=== PATIENT | male | born 1945 | race African-American/Black ===

== ENCOUNTER 2017-03-16 01:51 | Emergency (ER) | payer MEDICARE ==
[2017-03-16] MEDS ORDERED: LIDOCAINE 1% INJ (10 MG/ML) 10 ML MDV INJ ONE (02:05)
[2017-03-16] MEDS ORDERED: DIPH/PERTUSS(ACELL)/TETANUS VAC/PF 0.5 ML SYR (>=10YO) IM ONE (02:05)
[2017-03-16 02:13] VITALS: BP 106/89
[2017-03-16] MEDS ORDERED: LIDOCAINE 1% INJ-PF (10 MG/ML) 30 ML SDV ONE (02:17)
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
--- NOTE | 2017-03-16 04:00 | RADIOLOGY REPORT (SQ) ---
EXAM DESCRIPTION: CT HEAD WITHOUT COMPLETED DATE/TIME: 03/16/2017 3:25 am REASON FOR STUDY: head trauma COMPARISON: 07/14/2015. TECHNIQUE: Axial images acquired through the brain without intravenous contrast. Images reviewed wi th bone, brain and subdural windows. Images stored on PACS. All CT scanners at this facility use dose modulation, iterative reconstruction, and/or weight based d osing when appropriate to reduce radiation dose to as low as reasonably achievable (ALARA). [facility]: Dose Right [facility]: CareDose [facility]: Dose Right [facility]: Teradose 4D [facility]: [employer] RADIATION DOSE: Up-to-date CT equipment and radiation dose reduction techniques were employed. CTDIv ol: 49.0 mGy. DLP: 881 mGy-cm. mGy. LIMITATIONS: None. FINDINGS: VENTRICLES: Normal size and contour. CEREBRUM: No masses. No hemorrhage. No midline shift. No evidence for acute infarction. Normal gra y/white matter differentiation. Minimal white matter microangiopathy pattern. CEREBELLUM: No masses. No hemorrhage. No alteration of density. No evidence for acute infarction. EXTRAAXIAL SPACES: No fluid collections. No masses. Atherosclerosis. ORBITS AND GLOBE: No intra- or extraconal masses. Normal contour of globe without masses. CALVARIUM: No fracture. PARANASAL SINUSES: 1.5 cm left maxillary retention cyst -mucocele. SOFT TISSUES: No mass or hematoma. OTHER: No other significant finding. IMPRESSION: No acute findings. EVIDENCE OF ACUTE STROKE: NO. COMMENT: Quality ID # [id number]: Final reports with documentation of one or more dose reduction techniques (e.g., Automated exposure control, adjustment of the mA and/or kV according to patient size, use of iterative reconstruction technique) TECHNICAL DOCUMENTATION: JOB ID: [id number] [employer]- All Rights Reserved
== END 2017-03-16 04:28 | disposition home or self-care (01) ==
LOC: ER 01:51
PROC: 0HQ1XZZ Repair Face Skin, External Approach (ICD-10-PCS; principal; 2017-03-16)
DX: S01.81XA Laceration without foreign body of other part of head, initial encounter (principal); S09.90XA Unspecified injury of head, initial encounter; F17.200 Nicotine dependence, unspecified, uncomplicated; W22.8XXA Striking against or struck by other objects, initial encounter
CPT/HCPCS: 12013; 99283; 70450; 90715; J3490

== ENCOUNTER 2017-08-28 17:53 | Emergency (ER) | payer OTHER, MEDICARE ==
[2017-08-28 18:21] LABS: ABSOLUTE EOSINOPHILS # (AUTO) 0.2 10^3/uL (0.0-0.6); ABSOLUTE MONOCYTES (AUTO) 0.6 10^3/uL (0.1-1.4); ABSOLUTE NEUT (AUTO) 3.6 10^3/uL (1.7-8.2); BASOPHILS % (AUTO) 0.6 % (0-2); EOSINOPHILS % (AUTO) 3.3 % (0-6); HEMATOCRIT 42.2 % (37.9-51.0); HEMOGLOBIN 14.5 g/dL (13.5-17.0); LYMPHOCYTES % (AUTO) 30.5 % (13-45); MEAN CORPUSCULAR HEMOGLOBIN 35.2 pg (27.0-33.4); MEAN CORPUSCULAR HGB CONC 34.4 g/dL (32.0-36.0); MEAN CORPUSCULAR VOLUME 103 fl (80-97); MONOCYTES % (AUTO) 9.3 % (3-13); PLATELET COUNT 228 10^3/uL (150-450); RED BLOOD COUNT 4.12 10^6/uL (4.35-5.55); RED CELL DISTRIBUTION WIDTH 13.7 % (11.5-14.0); SEGMENTED NEUTROPHILS % (AUTO) 56.3 % (42-78); TOTAL CELLS COUNTED % (AUTO) 100 %; WHITE BLOOD COUNT 6.4 10^3/uL (4.0-10.5)
[2017-08-28 18:32] LABS: INTERNATIONAL RATION (INR) 0.96; PROTHROMBIN TIME 13.5 SEC (11.4-15.4)
[2017-08-28 18:44] LABS: BLOOD UREA NITROGEN 16 mg/dL (7-20); CALCIUM 9.4 mg/dL (8.4-10.2); CHLORIDE 108 mmol/L (98-107); GLUCOSE 166 mg/dL (75-110); POTASSIUM 4.3 mmol/L (3.6-5.0)
[2017-08-28 18:45] LABS: ALANINE AMINOTRANSFERASE 17 U/L (21-72); ALBUMIN 4.1 g/dL (3.5-5.0); ALKALINE PHOSPHATASE 76 U/L (38-126); ANION GAP 8 (5-19); ASPARTATE AMINO TRANSFERASE 22 U/L (17-59); BILIRUBIN,DIRECT 0.4 mg/dL (0.0-0.4); BILIRUBIN,TOTAL 1.3 mg/dL (0.2-1.3); CARBON DIOXIDE 23 mmol/L (22-30); SODIUM 139.2 mmol/L (137-145); TOTAL PROTEIN 7.4 g/dL (6.3-8.2)
--- NOTE | 2017-08-28 18:54 | RADIOLOGY REPORT (SQ) ---
EXAM DESCRIPTION: CT HEAD WITHOUT COMPLETED DATE/TIME: 08/28/2017 6:27 pm REASON FOR STUDY: altered mental status COMPARISON: 03/16/2017 TECHNIQUE: Axial images acquired through the brain without intravenous contrast. Images reviewed wi th bone, brain and subdural windows. Images stored on PACS. All CT scanners at this facility use dose modulation, iterative reconstruction, and/or weight based d osing when appropriate to reduce radiation dose to as low as reasonably achievable (ALARA). [facility]: Dose Right [facility]: CareDose [facility]: Dose Right [facility]: Teradose 4D [facility]: [employer] RADIATION DOSE: CT Rad equipment meets quality standard of care and radiation dose reduction techniq ues were employed. CTDIvol: 64.6 mGy. DLP: 1163 mGy-cm. mGy. LIMITATIONS: None. FINDINGS: VENTRICLES: Normal size and contour. CEREBRUM: There is decreased attenuation in the left posterior parietal area with loss of fan/ white differentiation. CEREBELLUM: No masses. No hemorrhage. No alteration of density. No evidence for acute infarction. EXTRAAXIAL SPACES: No fluid collections. No masses. ORBITS AND GLOBE: No intra- or extraconal masses. Normal contour of globe without masses. CALVARIUM: No fracture. PARANASAL SINUSES: Fluid is seen in each maxillary sinus. SOFT TISSUES: No mass or hematoma. OTHER: No other significant finding. IMPRESSION: 1. There is an area of decreased attenuation with loss of fan/ white differentiation i n the left posterior parietal region suggestive of at least a subacute infarction. 2. Maxillary sinus disease. EVIDENCE OF ACUTE STROKE: YES. LEFT MCA COMMENT: Findings were discussed with the ordering physician at 1846 hours on this date. Quality ID # [id number]: Final reports with documentation of one or more dose reduction techniques (e.g., Au tomated exposure control, adjustment of the mA and/or kV according to patient size, use of iterative reconstruction technique) TECHNICAL DOCUMENTATION: JOB ID: [id number] [employer]- All Rights Reserved Reading location - IP/workstation name: [email or web address]
--- NOTE | 2017-08-28 19:15 | RADIOLOGY REPORT (SQ) ---
EXAM DESCRIPTION: CT CERVICAL SPINE WITHOUT COMPLETED DATE/TIME: 08/28/2017 6:27 pm REASON FOR STUDY: FALL COMPARISON: 07/14/2015 TECHNIQUE: Axial images acquired through the cervical spine without intravenous contrast. Images re viewed with lung, soft tissue and bone windows. Reconstructed coronal and sagittal MPR images review ed. Images stored on PACS. All CT scanners at this facility use dose modulation, iterative reconstruction, and/or weight based d osing when appropriate to reduce radiation dose to as low as reasonably achievable (ALARA). [facility]: Dose Right [facility]: CareDose [facility]: Dose Right [facility]: Teradose 4D [facility]: [employer] RADIATION DOSE: CT Rad equipment meets quality standard of care and radiation dose reduction techniq ues were employed. CTDIvol: 16.1 mGy. DLP: 336 mGy-cm. mGy. LIMITATIONS: None. FINDINGS: ALIGNMENT: There is slight reversal of the normal cervical lordosis in the mid cervical ar ea. MINERALIZATION: Normal. VERTEBRAL BODIES: No fractures or dislocation. DISCS: Disc spaces are narrowed from C4 to C7 with anterior osteophytes. Uncovertebral osteophytes a re present at C4-5 and particularly C5-6. FACETS, LATERAL MASSES, POSTERIOR ELEMENTS: Hypertrophic facet changes seen in the mid cervical spine right more than left. HARDWARE: None in the spine. VISUALIZED RIBS: No fractures. LUNG APICES AND SOFT TISSUES: No significant or acute findings. OTHER: No other significant finding. IMPRESSION: Straightening of cervical spine which is chronic. Degenerative disc disease, spondylosi s, and facet arthropathy. No acute abnormality. TECHNICAL DOCUMENTATION: JOB ID: [id number] Quality ID # [id number]: Final reports with documentation of one or more dose reduction techniques (e.g., Au tomated exposure control, adjustment of the mA and/or kV according to patient size, use of iterative reconstruction technique) 2010 [employer]- All Rights Reserved Reading location - IP/workstation name: [email or web address]
--- NOTE | 2017-08-28 19:37 | ER Document Report ---
ED General - General Chief Complaint: Altered Mental Status Stated Complaint: ALTERED MENTAL STATUS Time Seen by Provider: 08/28/17 18:20 Mode of Arrival: Stretcher Information source: Patient TRAVEL OUTSIDE OF THE [place] IN LAST 30 DAYS: No - HPI Patient complains to provider of: mental status change Onset: This morning - exact time unknown Associated symptoms: None Similar symptoms previously: No Recently seen / treated by doctor: No Notes: Patient is incarcerated he was brought in here because this morning at approximately 11 AM he hit his head on a pull and then started acting strange. Please been who brought him in could not offer any more information. - Related Data Allergies/Adverse Reactions: No Known Allergies Allergy (Verified 11/13/15 08:05) Past Medical History - General Information source: Outside Facility Records - Social History Smoking Status: Unknown if Ever Smoked Drug Abuse: None Lives with: Other - Incarcerated Family History: Reviewed & Not Pertinent Patient has suicidal ideation: No Patient has homicidal ideation: No - Past Medical History Cardiac Medical History: Reports: Hx Hypertension Renal/ Medical History: Denies: Hx Peritoneal Dialysis - Immunizations Immunizations up to date: Yes Hx Diphtheria, Pertussis, Tetanus Vaccination: No Review of Systems - Review of Systems -: Yes ROS unobtainable due to patient's medical condition Physical Exam - Vital signs Vitals: Temp Pulse BP Pulse Ox 97.7 F 101 H 143/99 H 96 08/28/17 18:00 08/28/17 18:00 08/28/17 18:00 08/28/17 18:00 - Notes Notes: PHYSICAL EXAMINATION: GENERAL: Well-appearing, well-nourished and in no acute distress. HEAD: Atraumatic, normocephalic. No scalp hematoma, battlesigns or racoon eyes. EYES: Pupils equal round and reactive to light, extraocular movements intact, sclera anicteric, conjunctiva are normal. ENT: Nares patent. Moist mucous membranes. NECK: Normal range of motion, supple without lymphadenopathy LUNGS: Breath sounds clear to auscultation bilaterally and equal. No wheezes rales or rhonchi. HEART: Regular rate and rhythm without murmurs ABDOMEN: Soft, nontender, nondistended abdomen. No guarding, no rebound. No masses appreciated. Musculoskeletal: Normal range of motion, no pitting or edema. No cyanosis. NEUROLOGICAL: Cranial nerves grossly intact. Pt. has difficulty following commands. He moves all extremities without difficulty. Patient has apraxia as well as expressive aphasia. NIH stroke scale was 7. PSYCH: Called to assess. Patient does seem mildly frustrated. SKIN: Warm, Dry, normal turgor, no rashes or lesions noted. Course - Re-evaluation Re-evalutation: 08/28/17 19:36 call placed to [facility]-I did talk to Luly at the transfer center. She states she will have the hospitalist call me back. 08/28/17 20:00 I did speak with neurologist Dr. Molina at [facility]. Patient will be accepted and will be placed under Dr. Espinoza the hospitalist. M [employer] form has been filled out. Nurse and cognos are aware. IV fluids and rectal aspirin have been ordered. - Vital Signs Vital signs: Temp Pulse Resp BP Pulse Ox 98.2 F 92 23 H 152/102 H 97 08/28/17 20:01 08/28/17 21:12 08/28/17 21:44 08/28/17 21:30 08/28/17 21:43 - Laboratory Result Diagrams: 08/28/17 18:05 08/28/17 18:05 Laboratory results interpreted by me: 08/28/17 08/28/17 18:05 18:05 RBC 4.12 L MCV 103 H MCH 35.2 H Chloride 108 H Glucose 166 H ALT 17 L - Diagnostic Test Radiology reviewed: Image reviewed, Reports reviewed Critical Care Note - Critical Care Note Total time excluding time spent on procedures (mins): 30 Comments: minutes of critical care time spent in direct contact evaluating and reevaluating the patient, treating symptoms, reviewing labs and studies and speaking with family and consultants excluding any procedures Discharge - Discharge Clinical Impression: Parietal lobe infarction, 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
[2017-08-28] MEDS ORDERED: NORMAL SALINE 1000 ML 1,000 ML IV PRN (19:59)
[2017-08-28] MEDS ORDERED: ASPIRIN 300 MG SUPP, RECTAL PR ONE (19:59)
[2017-08-28 21:49] VITALS: BP 152/102
== END 2017-08-28 21:55 ==
LOC: ER 17:53
DX: I62.9 Nontraumatic intracranial hemorrhage, unspecified (principal); R47.01 Aphasia; R48.2 Apraxia; R41.82 Altered mental status, unspecified; I10 Essential (primary) hypertension
CPT/HCPCS: 99291; 96360; 36415; 85025; 85610; 80053; 70450; 72125; J3490; J7030

== ENCOUNTER 2017-10-19 17:00 | Emergency (ER) | payer MEDICARE, OTHER ==
--- NOTE | 2017-10-19 19:56 | RADIOLOGY REPORT (SQ) ---
EXAM DESCRIPTION: CT HEAD WITHOUT COMPLETED DATE/TIME: 10/19/2017 7:06 pm REASON FOR STUDY: headache, on bloodthinners COMPARISON: 08/28/2017 TECHNIQUE: Axial images acquired through the brain without intravenous contrast. Images reviewed wi th bone, brain and subdural windows. Images stored on PACS. All CT scanners at this facility use dose modulation, iterative reconstruction, and/or weight based d osing when appropriate to reduce radiation dose to as low as reasonably achievable (ALARA). [facility]: Dose Right [facility]: CareDose [facility]: Dose Right [facility]: Teradose 4D [facility]: [employer] RADIATION DOSE: CT Rad equipment meets quality standard of care and radiation dose reduction techniq ues were employed. CTDIvol: 53.2 mGy. DLP: 1017 mGy-cm. mGy. LIMITATIONS: None. FINDINGS: VENTRICLES: Age-appropriate. CEREBRUM: No masses. No hemorrhage. No midline shift. Evolving area of low density in the left tem poral-parietal white matter due to chronic ischemic change. No evidence for acute infarction. CEREBELLUM: No masses. No hemorrhage. No alteration of density. No evidence for acute infarction. EXTRAAXIAL SPACES: Mild age-related involutional change. No fluid collections. No masses. ORBITS AND GLOBE: No intra- or extraconal masses. Normal contour of globe without masses. CALVARIUM: No fracture. PARANASAL SINUSES: No fluid or mucosal thickening. SOFT TISSUES: No mass or hematoma. OTHER: No other significant finding. IMPRESSION: No intracranial hemorrhage.Evolving area of low density in the left temporal-parietal wh ite matter due to chronic ischemic change. EVIDENCE OF ACUTE STROKE: No TECHNICAL DOCUMENTATION: JOB ID: [id number] Quality ID # [id number]: Final reports with documentation of one or more dose reduction techniques (e.g., Au tomated exposure control, adjustment of the mA and/or kV according to patient size, use of iterative reconstruction technique) 2010 [employer]- All Rights Reserved Reading location - IP/workstation name: [email or web address]
[2017-10-19 20:12] LABS: ABSOLUTE EOSINOPHILS # (AUTO) 0.3 10^3/uL (0.0-0.6); ABSOLUTE LYMPHOCYTES (AUTO) 2.2 10^3/uL (0.5-4.7); ABSOLUTE MONOCYTES (AUTO) 0.6 10^3/uL (0.1-1.4); ABSOLUTE NEUT (AUTO) 2.4 10^3/uL (1.7-8.2); BASOPHILS % (AUTO) 0.7 % (0-2); EOSINOPHILS % (AUTO) 6.1 % (0-6); HEMATOCRIT 37.3 % (37.9-51.0); HEMOGLOBIN 12.5 g/dL (13.5-17.0); LYMPHOCYTES % (AUTO) 39.9 % (13-45); MEAN CORPUSCULAR HEMOGLOBIN 35.4 pg (27.0-33.4); MEAN CORPUSCULAR HGB CONC 33.6 g/dL (32.0-36.0); MEAN CORPUSCULAR VOLUME 105 fl (80-97); MONOCYTES % (AUTO) 10.5 % (3-13); PLATELET COUNT 222 10^3/uL (150-450); RED BLOOD COUNT 3.54 10^6/uL (4.35-5.55); SEGMENTED NEUTROPHILS % (AUTO) 42.8 % (42-78); TOTAL CELLS COUNTED % (AUTO) 100 %; WHITE BLOOD COUNT 5.5 10^3/uL (4.0-10.5)
[2017-10-19 20:23] LABS: ALANINE AMINOTRANSFERASE 38 U/L (21-72); ALKALINE PHOSPHATASE 91 U/L (38-126); ANION GAP 9 (5-19); ASPARTATE AMINO TRANSFERASE 18 U/L (17-59); BILIRUBIN,DIRECT 0.3 mg/dL (0.0-0.4); BILIRUBIN,TOTAL 0.8 mg/dL (0.2-1.3); BLOOD UREA NITROGEN 12 mg/dL (7-20); CALCIUM 9.6 mg/dL (8.4-10.2); CARBON DIOXIDE 29 mmol/L (22-30); CHLORIDE 107 mmol/L (98-107); CREATINE KINASE 48 U/L (55-170); GLUCOSE 99 mg/dL (75-110); POTASSIUM 5.1 mmol/L (3.6-5.0); SODIUM 145.3 mmol/L (137-145); TOTAL PROTEIN 6.8 g/dL (6.3-8.2)
[2017-10-19 20:41] LABS: CREATINE KINASE MB 0.37 ng/mL (<4.55)
[2017-10-19 20:42] LABS: TROPONIN I < 0.012 ng/mL
--- NOTE | 2017-10-19 21:08 | ER Document Report ---
ED Blood Pressure Problem - General Mode of Arrival: Ambulatory Information source: Patient TRAVEL OUTSIDE OF THE [place] IN LAST 30 DAYS: No - HPI Patient complains to provider of: High blood pressure Onset: Yesterday Similar symptoms previously: Yes Recently seen / treated by doctor: Yes <CHANDANA ORTEGA - Last Filed: 10/19/17 21:21> <NOREEN FELIX - Last Filed: 10/20/17 03:16> - General Chief Complaint: High Blood Pressure Stated Complaint: BLOOD PRESSURE PROBLEMS Time Seen by Provider: 10/19/17 18:24 Notes: Patient is a 71 year old male that presents to the emergency department today in custody of the [facility] with complaints of elevated blood pressures and a headache last night. Patient was recently moved to [facility] in [place] secondary to a CVA last week. [facility] deputy at bedside states the patient had similar symptoms when he had the CVA. Patient states he no longer has a headache and feels normal currently. Patient denies a headache currently, any pain, shortness of breath, nausea, vomiting, diarrhea , abdominal pain, cough, congestion, or fevers. (CHANDANA ORTEGA) - Related Data Allergies/Adverse Reactions: No Known Allergies Allergy (Verified 11/13/15 08:05) Past Medical History - General Information source: Patient - Social History Smoking Status: Unknown if Ever Smoked Cigarette use (# per day): No Frequency of alcohol use: None Drug Abuse: None Lives with: Family Family History: Reviewed & Not Pertinent Patient has suicidal ideation: No Patient has homicidal ideation: No - Past Medical History Cardiac Medical History: Reports: Hx Hypertension Surgical Hx: Negative - Immunizations Immunizations up to date: Yes Hx Diphtheria, Pertussis, Tetanus Vaccination: No <CHANDANA ORTEGA - Last Filed: 10/19/17 21:21> Review of Systems - Review of Systems Constitutional: denies: Fever EENT: No symptoms reported Cardiovascular: No symptoms reported Respiratory: denies: Short of breath Gastrointestinal: denies: Abdominal pain, Diarrhea, Vomiting Genitourinary: denies: Dysuria Male Genitourinary: No symptoms reported Musculoskeletal: denies: Leg swelling Skin: No symptoms reported Hematologic/Lymphatic: No symptoms reported Neurological/Psychological: See HPI, Headaches - not currently -: Yes All other systems reviewed and negative <CHANDANA ORTEGA - Last Filed: 10/19/17 21:21> Physical Exam - Vital signs Interpretation: Normal - General General appearance: Appears well, Alert - HEENT Head: Normocephalic, Atraumatic Eyes: Normal Pupils: PERRL - Respiratory Respiratory status: No respiratory distress Chest status: Nontender Breath sounds: Normal Chest palpation: Normal - Cardiovascular Rhythm: Regular Heart sounds: Normal auscultation Murmur: No - Abdominal Inspection: Normal Distension: No distension Bowel sounds: Normal Tenderness: Nontender Organomegaly: No organomegaly - Back Back: Normal, Nontender - Extremities General upper extremity: Normal inspection, Nontender, Normal color, Normal ROM , Normal temperature General lower extremity: Normal inspection, Nontender, Normal color, Normal ROM , Normal temperature, Normal weight bearing. No: Pedro's sign - Neurological Neuro grossly intact: Yes Cognition: Normal Orientation: AAOx4 Heydi Coma Scale Eye Opening: Spontaneous Heydi Coma Scale Verbal: Oriented Philo Coma Scale Motor: Obeys Commands Philo Coma Scale Total: 15 Speech: Normal Motor strength normal: LUE, RUE, LLE, RLE Sensory: Normal - Psychological Associated symptoms: Normal affect, Normal mood - Skin Skin Temperature: Warm Skin Moisture: Dry Skin Color: Normal <NOREEN FELIX - Last Filed: 10/20/17 03:16> - Vital signs Vitals: Temp Pulse Resp BP Pulse Ox 97.6 F 76 16 152/92 H 100 10/19/17 17:13 10/19/17 17:13 10/19/17 17:13 10/19/17 17:13 10/19/17 17:13 Course - Laboratory Result Diagrams: 10/19/17 19:54 10/19/17 19:54 <CHANDANA ORTEGA - Last Filed: 10/19/17 21:21> - Laboratory Result Diagrams: 10/19/17 19:54 10/19/17 19:54 - Diagnostic Test Radiology reviewed: Reports reviewed <NOREEN FELIX - Last Filed: 10/20/17 03:16> - Re-evaluation Re-evalutation: 10/19 Patient had a headache and high blood pressure last night. No headache today. Asymptomatic today. Patient had a recent stroke but no symptoms currently. He is completely neurologically intact. CT of his head today is not showing any new changes. Blood work within normal limits including troponin negative 2. Patient is instructed to follow-up with his doctor and return immediately if he has any further concerns. (NOREEN FELIX) - Vital Signs Vital signs: Temp Pulse Resp BP Pulse Ox 98.0 F 70 12 158/102 H 97 10/19/17 23:31 10/19/17 18:43 10/19/17 23:31 10/19/17 23:31 10/19/17 23:31 - Laboratory Laboratory results interpreted by me: 10/19/17 10/19/17 19:54 19:54 RBC 3.54 L Hgb 12.5 L Hct 37.3 L MCV 105 H MCH 35.4 H Eosinophils % 6.1 H Sodium 145.3 H Potassium 5.1 H Creatine Kinase 48 L Discharge <CHANDANA ORTEGA - Last Filed: 10/19/17 21:21> <NOREEN FELIX - Last Filed: 10/20/17 03:16> - Discharge Clinical Impression: Headache Qualifiers: Headache type: unspecified Headache chronicity pattern: unspecified pattern Intractability: not intractable Qualified Code(s): R51 - Headache HTN (hypertension) Qualifiers: Hypertension type: unspecified Qualified Code(s): I10 - Essential (primary) hypertension Condition: Stable Disposition: HOME, SELF-CARE Instructions: High Blood Pressure ([facility]) Additional Instructions: Please follow-up with your doctor on Saturday. Scribe Attestation: 10/20/17 03:15 I personally performed the services described in the documentation, reviewed and edited the documentation which was dictated to the scribe in my presence, and it accurately records my words and actions. (NOREEN FELIX) Scribe Documentation - Scribe Written by Alba:: Alba Barron, [id number] acting as scribe for :: Eron <CHANDANA ORTEGA - Last Filed: 10/19/17 21:21>
[2017-10-19 23:48] VITALS: BP 158/102
--- NOTE | 2017-10-20 08:17 | EKG REPORT ---
SEVERITY:- ABNORMAL ECG - SINUS RHYTHM LEFT ANTERIOR FASCICULAR BLOCK PROBABLE LEFT VENTRICULAR HYPERTROPHY ABNORMAL T, CONSIDER ISCHEMIA, ANT-LAT LEAD, NEW, COMPARED WITH 11/13/15 EKG. : Confirmed by: Charles Figueroa MD 20-Oct-2017 08:17:07
== END 2017-10-19 23:56 | disposition home or self-care (01) ==
LOC: ER 17:00
DX: I10 Essential (primary) hypertension (principal); R51 Headache; Z86.73 Personal history of transient ischemic attack (TIA), and cerebral infarction without residual deficits
CPT/HCPCS: 36415; 70450; 80053; 82550; 82553; 84484; 85025; 93005; 93010; 99285

== ENCOUNTER 2017-11-20 10:46 | Emergency (ER) | payer MEDICARE, OTHER ==
--- NOTE | 2017-11-20 11:23 | ER Document Report ---
ED GI/ - General Chief Complaint: Abdominal Pain Stated Complaint: LOWER ABDOMINAL PAIN Time Seen by Provider: 11/20/17 11:10 Information source: Patient, Parent Notes: Patient noted onset of painful swelling in the left groin area just a couple of days ago. Patient has never had this before. There is not been any draining. He has had no urinary tract symptoms. Patient is a resident of a local skilled nursing for the past 8 months. Denies any trauma to the area. No urethral discharge or drip. Has not had any fevers. No complaints involving the scrotum or testicles. TRAVEL OUTSIDE OF THE [place] IN LAST 30 DAYS: No - Related Data Allergies/Adverse Reactions: No Known Allergies Allergy (Verified 11/13/15 08:05) Past Medical History - Social History Smoking Status: Former Smoker Chew tobacco use (# tins/day): No Frequency of alcohol use: past history Drug Abuse: None Family History: Reviewed & Not Pertinent Patient has suicidal ideation: No Patient has homicidal ideation: No - Past Medical History Cardiac Medical History: Reports: Hx Hypertension Endocrine Medical History: Denies: Hx Diabetes Mellitus Type 1, Hx Diabetes Mellitus Type 2 Renal/ Medical History: Reports: Hx Kidney Stones Past Surgical History: Reports: None - Immunizations Immunizations up to date: Yes Hx Diphtheria, Pertussis, Tetanus Vaccination: No Review of Systems - Review of Systems Notes: REVIEW OF SYSTEMS: CONSTITUTIONAL : Denies fever. Only has pain in that one spot in the left inguinal region where there is the swollen lump. Vital signs are normal. Afebrile. EENT: Denies eye, ear, nose or mouth or throat pain or other symptoms. CARDIOVASCULAR: Denies chest pain. RESPIRATORY: Denies cough, chest congestion, or shortness of breath. GASTROINTESTINAL: Denies abdominal pain or nausea, vomiting, or diarrhea. GENITOURINARY: Denies difficulty or painful urinating, urinary frequency, blood in urine. Tender swollen area in the middle of the left inguinal region. Not pulsatile. No fluctuance felt. No gaseous distention felt. MUSCULOSKELETAL: Denies back or neck pain. Denies joint pain or swelling. SKIN: Denies rash or skin lesions. NEUROLOGICAL: Denies LOC or altered mental status. Denies headache. Denies sensory loss or motor deficits. ALL OTHER SYSTEMS REVIEWED AND NEGATIVE. Physical Exam - Vital signs Vitals: Temp Pulse Resp BP Pulse Ox 98.2 F 82 18 140/92 H 98 11/20/17 11:05 11/20/17 11:05 11/20/17 11:05 11/20/17 11:05 11/20/17 11:05 Interpretation: Normal - Notes Notes: PHYSICAL EXAMINATION: GENERAL: Well-appearing, in no acute distress. HEAD: Atraumatic, normocephalic. NECK: Normal range of motion, supple. LUNGS: Breath sounds clear and equal bilaterally. HEART: Regular rate and rhythm without murmurs. ABDOMEN: Soft, nontender. No guarding or rebound. No masses. BACK: No tenderness throughout entire back. EXTREMITIES: Normal range of motion without pain. NEUROLOGICAL: Normal speech, normal gait. Normal sensory, motor, and reflex exams. Awake, alert, and oriented x3. Cranial nerves normal. PSYCH: Normal mood, normal affect. SKIN: Warm, dry, no rashes. Approximately 2 cm x 1 cm lump in the left inguinal region. No fluctuance, no drainage, no gaseous feeling. Lump feels to be mostly firm and solid structure. No skin changes overlying the lump and no change in color. Course - Re-evaluation Re-evalutation: 11/20/17 13:04 Consult by surgeon artificial insemination technician, Dr. Vazquez, requested. Dr. Vazquez attempted aspiration and incision and drainage of the lump, but was not able to find any fluid. He did biopsy some tissue which was sent for pathologic evaluation. He requested that I put the patient on about 3 days of antibiotic and the packing that was placed can be removed in 2 days. - Vital Signs Vital signs: Temp Pulse Resp BP Pulse Ox 99.1 F 102 H 18 151/85 H 97 11/20/17 15:38 11/20/17 15:38 11/20/17 15:38 11/20/17 15:38 11/20/17 15:38 - Laboratory Result Diagrams: 11/20/17 11:43 11/20/17 11:43 Laboratory results interpreted by me: 11/20/17 11/20/17 11:43 11:43 RBC 3.80 L Hgb 13.3 L MCV 106 H MCH 35.1 H Chloride 109 H AST 16 L - Diagnostic Test Radiology reviewed: Image reviewed, Reports reviewed - Ultrasound read by radiology as showing a small area of either sebaceous cyst or abscess fluid collection. Discharge - Discharge Clinical Impression: Lymphadenopathy, inguinal, Abscess of left groin Condition: Stable Disposition: HOME, SELF-CARE Additional Instructions: ABSCESS: You may have an abscess (boil) and enlarged lymph node.. This a pus- forming infection, usually due to staph. Some boils may be left to drain on their own, but most require lancing. From the time the tender lump first appears, it may be three or four days before the abscess is ready to cornelius. Local heat and rest help at this stage of treatment. An antibiotic may prevent spread of the infection. Once the abscess is opened, packing may be placed into it. This is done so pus is not sealed inside by premature closure of the cavity. The packing will be removed at your follow-up visit or you may be advised to remove it yourself at home. Sometimes this packing must be replaced a few times during healing. The wound will heal with surprisingly little scar. Depending on the size and location of an abscess, healing can take one to four weeks. You may shower and wash the area around the incision site two or three times a day. Antibiotics may be prescribed, but are usually not necessary after an abscess has been drained. If you develop fever, chills, worsening pain, or increasing swelling in the area, call the doctor or return immediately. Lymphadenopathy You have enlargement of lymph glands, called lymphadenopathy. Lymph glands filter tissue fluids. They help to fight infection. Most of the time, enlarged lymph glands are not serious. Lymph glands may react to a viral or bacterial infection by becoming swollen and painful. When the infection goes away, the glands shrink. Sometimes a lymph gland will remain enlarged for a long time after an infection. Occasionally, a lymph gland may be overwhelmed by infection and form an abscess. If an enlarged lymph gland has signs that are suspicious for tumor, the doctor will recommend a biopsy. A suspicious gland usually is NOT painful, grows very slowly, and is rock-hard to touch. See the doctor or return if there is increasing swelling and redness, high fever, difficulty breathing, or any other change for the worse. POST INCISION AND DRAINAGE: You have had an incision made to allow drainage of an abscess. The incision must remain open so that pus and debris can drain from the wound. If the abscess cavity is large, packing is placed. This keeps the tissues from collapsing and trapping pus inside, while the body shrinks the cavity. The packing may need to be replaced every day or two. The physician will instruct you on the packing. Keep a bulky dressing over the area. Replace it if it becomes saturated with blood or pus. Do not disturb the packing (if present). You may shower and cleanse the area with gentle soap and warm water two or three times a day. Local warmth may be soothing, and may promote faster healing. Return if you develop high fever or chills, or if you note spreading redness, increasing swelling, or increasing tenderness. CEPHALEXIN: The antibiotic you've been prescribed is a member of the cephalosporin class. This type of antibiotic covers a wide variety of infections, including those of the skin, lungs, and urinary tract. It's useful for staph infections. This antibiotic is slightly similar to the penicillin family. In rare cases , a person who is allergic to penicillin will also be allergic to this medication. If you have had a severe allergic reaction to penicillin, and have not taken this antibiotic since that time, notify your doctor. Antibiotics which cover many germs ("broad spectrum" antibiotics) are more likely to cause diarrhea or "yeast" infections. Women prone to vaginal yeast problems may suffer an attack after taking this antibiotic. In infants, oral thrush (white spots "stuck" on the cheek) or yeast diaper rash may result. See your doctor if these problems occur. Call at once if you develop itching, hives , shortness of breath, or lightheadedness. The packing should be removed from the incision site in 2 days, Saturday afternoon would be best. FOLLOW-UP CARE: Most simple abscesses will not require a follow up visit. If you had packing placed in the abscess, remove it as instructed by the physician. If you have been referred to a physician for follow-up care, call the physicians office for an appointment as you were instructed or within the next two days. If you experience worsening or a significant change in your symptoms, return to the Emergency Department at any time for re-evaluation. Prescriptions: Cephalexin Monohydrate [Keflex 500 mg Capsule] 500 mg PO QID 3 Days capsule
[2017-11-20 12:01] LABS: ABSOLUTE BASOPHILS # (AUTO) 0.1 10^3/uL (0.0-0.2); ABSOLUTE EOSINOPHILS # (AUTO) 0.3 10^3/uL (0.0-0.6); ABSOLUTE MONOCYTES (AUTO) 0.8 10^3/uL (0.1-1.4); ABSOLUTE NEUT (AUTO) 4.7 10^3/uL (1.7-8.2); BASOPHILS % (AUTO) 0.7 % (0-2); EOSINOPHILS % (AUTO) 4.3 % (0-6); HEMATOCRIT 40.3 % (37.9-51.0); HEMOGLOBIN 13.3 g/dL (13.5-17.0); LYMPHOCYTES % (AUTO) 25.8 % (13-45); MEAN CORPUSCULAR HEMOGLOBIN 35.1 pg (27.0-33.4); MEAN CORPUSCULAR HGB CONC 33.1 g/dL (32.0-36.0); MEAN CORPUSCULAR VOLUME 106 fl (80-97); MONOCYTES % (AUTO) 9.8 % (3-13); PLATELET COUNT 202 10^3/uL (150-450); RED CELL DISTRIBUTION WIDTH 13.5 % (11.5-14.0); SEGMENTED NEUTROPHILS % (AUTO) 59.4 % (42-78); TOTAL CELLS COUNTED % (AUTO) 100 %; WHITE BLOOD COUNT 7.9 10^3/uL (4.0-10.5)
[2017-11-20 12:21] LABS: ALANINE AMINOTRANSFERASE 33 U/L (21-72); ALKALINE PHOSPHATASE 86 U/L (38-126); ANION GAP 9 (5-19); ASPARTATE AMINO TRANSFERASE 16 U/L (17-59); BILIRUBIN,DIRECT 0.2 mg/dL (0.0-0.4); BILIRUBIN,TOTAL 0.8 mg/dL (0.2-1.3); BLOOD UREA NITROGEN 16 mg/dL (7-20); CALCIUM 9.5 mg/dL (8.4-10.2); CARBON DIOXIDE 25 mmol/L (22-30); CHLORIDE 109 mmol/L (98-107); GLUCOSE 95 mg/dL (75-110); POTASSIUM 4.8 mmol/L (3.6-5.0); SODIUM 142.9 mmol/L (137-145); TOTAL PROTEIN 6.9 g/dL (6.3-8.2)
--- NOTE | 2017-11-20 12:32 | RADIOLOGY REPORT (SQ) ---
EXAM DESCRIPTION: U/S NON-OB PELVIS LTD W/O DOP COMPLETED DATE/TIME: 11/20/2017 12:06 pm REASON FOR STUDY: Painful swelling in left groin, no history hernia COMPARISON: None. TECHNIQUE: Dynamic and static grayscale images acquired of the left inguinal superficial soft tissue s and recorded on PACS. Additional selected color Doppler and spectral images recorded. LIMITATIONS: None. FINDINGS: Patient has a palpable tender area in the left inguinal soft tissues. Ultrasound of the a kim indicated by the patient demonstrates a hypoechoic 1.5 x 1 cm complex fluid collection with sligh tly irregular margins. No internal color flow. This could represent a suppurative lymph node or cou ld represent an infected or inflamed sebaceous cyst in the subcutaneous tissues. IMPRESSION: 1.5 x 1 cm complex fluid collection just deep to the skin surface left inguinal region. This most likely represents a sebaceous cyst or small subcutaneous abscess. TECHNICAL DOCUMENTATION: JOB ID: [id number] [employer]- All Rights Reserved Rev Reading location - IP/workstation name: [email or web address]-RR
[2017-11-20] MEDS ORDERED: LIDOCAINE 1% INJ-PF (10 MG/ML) 30 ML SDV ONE (13:11)
[2017-11-20 15:39] VITALS: BP 151/85
--- NOTE | 2017-11-20 15:54 | OPERATIVE REPORT E ---
Operative Report NAME: SUSY CONNOLLY : 1945 AGE: 71Y DATE OF SURGERY: 11/20/2017 ROOM: PREOPERATIVE DIAGNOSIS: Left groin abscess. POSTOPERATIVE DIAGNOSIS: Left groin lymph node. OPERATION: SURGEON: SEDRICK CARLOS M.D. ANESTHESIA: Local. INDICATIONS FOR PROCEDURE: This is a 71-year-old male who was in the care home and noted pains along the left groin and some starting mass noted about 2 days ago. He was brought to the ED and ED physician sent him for an ultrasound which showed a possible sebaceous cyst or an abscess. DESCRIPTION OF PROCEDURE: Patient was placed in supine position and the left groin prepped and draped in the usual sterile fashion. Appropriate consent was obtained. Next, local anesthesia was infiltrated over the palpable lump which roughly measured about 2 x 2 cm in diameter. A cruciate incision was made and no definite evidence of abscess noted, though cultures of this bloody cavity site and with blunt squeezing around the area noted a lymph node. This lymph node was partially removed with the use of a hemostat and just primarily pulling on it and sent several fragments for biopsy. No other evidence of abscess or sebaceous cyst noted. The area was subsequently packed with a bottle of quarter-inch Iodoform gauze, primarily to control the bleeding. This controlled the bleeding nicely. A sterile 4 x 4 was placed over the operative site. Needle, instrument, and sponge counts were all correct. Estimated blood loss was about 25 mL. Patient was then discussed with the ER physician, Dr. Franco, and told him to keep the packing for at least 2 days and the patient can be seen by a nurse in the care home and continue with antibiotics for about 3 to 5 days, likely with Keflex. DICTATING PHYSICIAN: SEDRICK CARLOS M.D. [id number] PHY#: [id number] ID: [id number] JOB#: [id number] ACCT: [id number] cc:SEDRICK CARLOS M.D. >
== END 2017-11-20 15:48 | disposition home or self-care (01) ==
LOC: ER 10:46
PROC: 0H97XZZ Drainage of Abdomen Skin, External Approach (ICD-10-PCS; principal; 2017-11-20)
DX: L02.214 Cutaneous abscess of groin (principal); R10.30 Lower abdominal pain, unspecified; R59.0 Localized enlarged lymph nodes; I10 Essential (primary) hypertension; Z87.891 Personal history of nicotine dependence; Z87.442 Personal history of urinary calculi
CPT/HCPCS: 99284; 36415; 87070; 87205; 85025; 87075; 87077; 80053; 87186; 88304 ×2; 76857; 10060; A6266; J3490

== ENCOUNTER 2018-08-19 11:55 | Emergency (ER) | payer MEDICARE, OTHER ==
[2018-08-19 12:23] VITALS: BP 154/86
[2018-08-19] MEDS ORDERED: BACLOFEN 10 MG TABLET PO ONE (12:48)
[2018-08-19] MEDS ORDERED: KETOROLAC TROMETHAMINE 10 MG TABLET PO ONE (12:48)
--- NOTE | 2018-08-19 12:53 | ER Document Report ---
ED General - General Chief Complaint: Flank Pain Stated Complaint: SIDE PAIN Time Seen by Provider: 08/19/18 12:43 Mode of Arrival: Ambulatory Information source: Patient Notes: Chief complaint: Left iliac crest pain History of complain:( obtained from----patient) 72 years old male 1 month ago was lifting some furniture felt a sharp pain over the iliac crest region on the left side. Since then pain is persistent. Since he is going to travel today came to the ER to get some pain medicines. Pain is increased on twisting lower back. No fever chills or other constitutional symptoms denies any constipation dysuria frequency urgency. Onset: As above Duration: 1 month Severity: Mild to moderate Quality: Sharp Context: As described above Exacerbating factor and relieving factors: Change of position REVIEW OF SYSTEMS: CONSTITUTIONAL : Denies fever, chills, or sweats. Denies recent illness. EENT: Denies eye, ear, throat, or mouth pain or symptoms. Denies nasal or sinus congestion or discharge. Denies throat, tongue, or mouth swelling or difficulty swallowing. CARDIOVASCULAR: Denies chest pain. Denies palpitations or racing or irregular heart beat. Denies ankle edema. RESPIRATORY: Denies cough, cold, or chest congestion. Denies shortness of breath, difficulty breathing, or wheezing. GASTROINTESTINAL: Denies distention. Denies nausea, vomiting, or diarrhea. Denies blood in vomitus, stools, or per rectum. Denies black, tarry stools. Denies constipation. GENITOURINARY: Denies difficulty urinating, painful urination, burning, frequency, blood in urine, or discharge. FEMALE GENITOURINARY: Denies vaginal bleeding, heavy or abnormal periods, irregular periods. Denies vaginal discharge or odor. MUSCULOSKELETAL: NEUROLOGICAL: Denies confusion or altered mental status. Denies passing out or loss of consciousness. Denies dizziness or lightheadedness. Denies headache. Denies weakness or paralysis or loss of use of either side. Denies problems with gait or speech. Denies sensory loss, numbness, or tingling. Denies seizures. PSYCHIATRIC: Denies anxiety or stress. Denies depression, suicidal ideation, or homicidal ideation. ALL OTHER SYSTEMS REVIEWED AND NEGATIVE. PHYSICAL EXAMINATION: GENERAL: Well-appearing, well-nourished and in no acute distress. HEAD: Atraumatic, normocephalic. EYES: LUNGS: Breath sounds clear to auscultation bilaterally and equal. No wheezes rales or rhonchi. HEART: Regular rate and rhythm without murmurs ABDOMEN: Soft, nontender, nondistended abdomen. No guarding, no rebound. No masses appreciated. Examination of genitals-deferred Musculoskeletal: Normal range of motion, no pitting or edema. No cyanosis. Except left iliac crest region sharp tenderness over the muscles noted. Dictation was performed using [email or web address] voice recognition software TRAVEL OUTSIDE OF THE [place] IN LAST 30 DAYS: No - HPI Notes: Dictated - Related Data Allergies/Adverse Reactions: No Known Allergies Allergy (Verified 11/13/15 08:05) Past Medical History - Social History Smoking Status: Current Every Day Smoker Cigarette use (# per day): No Chew tobacco use (# tins/day): No Frequency of alcohol use: Rare Drug Abuse: None Lives with: Family Family History: Reviewed & Not Pertinent - Past Medical History Cardiac Medical History: Reports: Hx Hypertension Denies: Hx Atrial Fibrillation, Hx Congestive Heart Failure, Hx Heart Attack, Hx Hypercholesterolemia Pulmonary Medical History: Denies: Hx Asthma, Hx Bronchitis, Hx COPD, Hx Pneumonia, Hx Tuberculosis Neurological Medical History: Denies: Hx Migraine, Hx Seizures Endocrine Medical History: Denies: Hx Diabetes Mellitus Type 1, Hx Diabetes Mellitus Type 2 Renal/ Medical History: Reports: Hx Kidney Stones. Denies: Hx End Stage Renal Disease, Hx Peritoneal Dialysis GI Medical History: Denies: Hx Gastroesophageal Reflux Disease, Hx Hiatal Hernia, Hx Ulcer Musculoskeletal Medical History: Denies Hx Arthritis Psychiatric Medical History: Denies: Hx Attention Deficit Hyperactivity Disorder, Hx Bipolar Disorder, Hx Depression, Hx Schizophrenia - Immunizations Immunizations up to date: Yes Hx Diphtheria, Pertussis, Tetanus Vaccination: No Review of Systems - Review of Systems Notes: Dictated Physical Exam - Vital signs Vitals: Temp Pulse Resp BP Pulse Ox 98.2 F 77 16 154/86 H 98 08/19/18 12:08/19/18 12:08/19/18 12:08/19/18 12:08/19/18 12:22 - Notes Notes: Dictated Course - Vital Signs Vital signs: Temp Pulse Resp BP Pulse Ox 98.2 F 77 16 154/86 H 98 08/19/18 12:08/19/18 12:19 12:22 08/19/18 12:22 08/19/18 12:22 Discharge - Discharge Clinical Impression: Myalgia, Muscle strain Condition: Fair Disposition: HOME, SELF-CARE Instructions: Muscle Strain (OM) Prescriptions: Baclofen [Baclofen 10 mg Tablet] 10 mg PO TID #30 tab Tramadol HCl [Ultram] 50 mg PO TID #20 tablet
== END 2018-08-19 13:04 | disposition home or self-care (01) ==
LOC: ER 11:55
DX: S39.011A Strain of muscle, fascia and tendon of abdomen, initial encounter (principal); M79.10 Myalgia, unspecified site; R10.9 Unspecified abdominal pain; X50.0XXA Overexertion from strenuous movement or load, initial encounter; F17.200 Nicotine dependence, unspecified, uncomplicated; I10 Essential (primary) hypertension
CPT/HCPCS: 99284; 96361; 96374; A9270 ×2; J3490

== ENCOUNTER 2018-12-06 09:40 | Inpatient (IN) | payer MEDICARE ==
--- NOTE | 2018-12-06 10:10 | ER Document Report ---
ED Medical Screen (RME) - General Chief Complaint: Shortness Of Breath Stated Complaint: DIFFICULTY BREATHING Time Seen by Provider: 12/06/18 10:03 Mode of Arrival: Ambulatory Information source: Patient Notes: Patient presents complaining of shortness of breath for the past 3 days with difficulty breathing. Patient reports mild cough. Patient denies any chest pain nausea vomiting or fever. hx: Hypertension, seizure I have greeted and performed a rapid initial assessment of this patient. A comprehensive ED assessment and evaluation of the patient, analysis of test results and completion of the medical decision making process will be conducted by additional ED providers. TRAVEL OUTSIDE OF THE [place] IN LAST 30 DAYS: No - Related Data Allergies/Adverse Reactions: No Known Allergies Allergy (Verified 12/06/18 09:43) Past Medical History - Past Medical History Cardiac Medical History: Reports: Hx Hypertension Denies: Hx Atrial Fibrillation, Hx Congestive Heart Failure, Hx Heart Attack, Hx Hypercholesterolemia Pulmonary Medical History: Denies: Hx Asthma, Hx Bronchitis, Hx COPD, Hx Pneumonia, Hx Tuberculosis Neurological Medical History: Denies: Hx Migraine, Hx Seizures Endocrine Medical History: Denies: Hx Diabetes Mellitus Type 1, Hx Diabetes Mellitus Type 2 Renal/ Medical History: Reports: Hx Kidney Stones. Denies: Hx End Stage Renal Disease, Hx Peritoneal Dialysis GI Medical History: Denies: Hx Gastroesophageal Reflux Disease, Hx Hiatal Hernia, Hx Ulcer Musculoskeltal Medical History: Denies Hx Arthritis Psychiatric Medical History: Denies: Hx Attention Deficit Hyperactivity Disorder, Hx Bipolar Disorder, Hx Depression, Hx Schizophrenia - Immunizations Immunizations up to date: Yes Hx Diphtheria, Pertussis, Tetanus Vaccination: No Physical Exam - Vital signs Vitals: Temp Pulse Resp BP Pulse Ox 97.3 F 55 L 28 H 149/102 H 98 12/06/18 09:43 12/06/18 09:43 12/06/18 09:43 12/06/18 09:43 12/06/18 09:43 - Respiratory Respiratory status: Tachypnea Breath sounds: Normal Course - Vital Signs Vital signs: Temp Pulse Resp BP Pulse Ox 97.3 F 55 L 28 H 149/102 H 98 12/06/18 09:43 12/06/18 09:43 12/06/18 09:43 12/06/18 09:43 12/06/18 09:43
[2018-12-06 10:39] LABS: ABSOLUTE EOSINOPHILS # (AUTO) 0.1 10^3/uL (0.0-0.6); ABSOLUTE LYMPHOCYTES (AUTO) 1.7 10^3/uL (0.5-4.7); ABSOLUTE MONOCYTES (AUTO) 0.4 10^3/uL (0.1-1.4); ABSOLUTE NEUT (AUTO) 2.9 10^3/uL (1.7-8.2); BASOPHILS % (AUTO) 0.9 % (0-2); EOSINOPHILS % (AUTO) 1.9 % (0-6); HEMATOCRIT 36.9 % (37.9-51.0); HEMOGLOBIN 12.5 g/dL (13.5-17.0); LYMPHOCYTES % (AUTO) 33.6 % (13-45); MEAN CORPUSCULAR HEMOGLOBIN 35.1 pg (27.0-33.4); MEAN CORPUSCULAR HGB CONC 33.8 g/dL (32.0-36.0); MEAN CORPUSCULAR VOLUME 104 fl (80-97); MONOCYTES % (AUTO) 7.6 % (3-13); PLATELET COUNT 193 10^3/uL (150-450); RED BLOOD COUNT 3.55 10^6/uL (4.35-5.55); RED CELL DISTRIBUTION WIDTH 13.2 % (11.5-14.0); TOTAL CELLS COUNTED % (AUTO) 100 %; WHITE BLOOD COUNT 5.2 10^3/uL (4.0-10.5)
--- NOTE | 2018-12-06 10:59 | RADIOLOGY REPORT (SQ) ---
EXAM DESCRIPTION: CHEST 2 VIEWS COMPLETED DATE/TIME: 12/06/2018 10:37 am REASON FOR STUDY: sob COMPARISON: 11/13/2015 chest film EXAM PARAMETERS: NUMBER OF VIEWS: two views TECHNIQUE: Digital Frontal and Lateral radiographic views of the chest acquired. RADIATION DOSE: NA LIMITATIONS: none FINDINGS: LUNGS AND PLEURA: Pulmonary vascular congestion, interstitial pulmonary edema, and trace p leural fluid is present from fluid overload or congestive failure. No dense consolidation worrisome for pneumonia. No pneumothorax. MEDIASTINUM AND HILAR STRUCTURES: No masses or contour abnormalities. HEART AND VASCULAR STRUCTURES: Borderline cardiomegaly BONES: No acute findings. HARDWARE: None in the chest. OTHER: No other significant finding. IMPRESSION: Fluid overload or congestive failure pattern with pulmonary vascular congestion, interst itial edema and trace pleural effusions. TECHNICAL DOCUMENTATION: JOB ID: [id number] [employer]- All Rights Reserved Reading location - IP/workstation name: [facility]
[2018-12-06 11:02] LABS: ALANINE AMINOTRANSFERASE 39 U/L (21-72); ALBUMIN 3.6 g/dL (3.5-5.0); ALKALINE PHOSPHATASE 84 U/L (38-126); ANION GAP 6 (5-19); ASPARTATE AMINO TRANSFERASE 26 U/L (17-59); BILIRUBIN,DIRECT 0.1 mg/dL (0.0-0.4); BLOOD UREA NITROGEN 16 mg/dL (7-20); CALCIUM 9.2 mg/dL (8.4-10.2); CARBON DIOXIDE 30 mmol/L (22-30); CHLORIDE 107 mmol/L (98-107); GLUCOSE 95 mg/dL (75-110); POTASSIUM 3.7 mmol/L (3.6-5.0); SODIUM 142.6 mmol/L (137-145); TOTAL PROTEIN 6.1 g/dL (6.3-8.2)
[2018-12-06] MEDS ORDERED: IPRATROPIUM/ALBUTEROL 0.5-2.5 MG/3 ML AMPUL NEB ONE (11:47)
[2018-12-06] MEDS ORDERED: FUROSEMIDE INJ/PF 20 MG/2 ML SDV IV ONE (12:28)
--- NOTE | 2018-12-06 13:29 | EKG REPORT ---
SEVERITY:- ABNORMAL ECG - SINUS TACHYCARDIA ERIKA, CONSIDER BIATRIAL ABNORMALITIES LVH WITH SECONDARY REPOLARIZATION ABNORMALITY ANTERIOR Q WAVES, POSSIBLY DUE TO LVH ABNORMAL T, PROBABLE ISCHEMIA, LATERAL LEADS PROLONGED QT INTERVAL : Confirmed by: Charles Figueroa MD 06-Dec-2018 13:28:56
--- NOTE | 2018-12-06 13:55 | ER Document Report ---
Entered by CHANDANA ORTEGA SCRIBE 12/06/18 1146 Acting as scribe for:SANTANA OBREGON MD ED Respiratory Problem - General Chief Complaint: Shortness Of Breath Stated Complaint: DIFFICULTY BREATHING Time Seen by Provider: 12/06/18 10:03 Mode of Arrival: Ambulatory Information source: Patient Notes: 72 year old male that presents to the emergency department today with complaints of shortness of breath for the last three days. Patient states that he was chasing down horse that got loose when he first noticed his shortness of breath. Patient states his shortness of breath is exacerbated with exertion. He does have past history of hypertension, but is not been treated since he was in the retirement according to his family members. TRAVEL OUTSIDE OF THE [place] 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 Renal/ Medical History: Reports: Hx Kidney Stones - Immunizations Immunizations up to date: Yes Hx Diphtheria, Pertussis, Tetanus Vaccination: No Review of Systems - Review of Systems Constitutional: No symptoms reported EENT: No symptoms reported Cardiovascular: No symptoms reported Respiratory: See HPI, Cough, Short of breath Gastrointestinal: No symptoms reported Genitourinary: No symptoms reported Male Genitourinary: No symptoms reported Musculoskeletal: No symptoms reported Skin: No symptoms reported Hematologic/Lymphatic: No symptoms reported Neurological/Psychological: No symptoms reported -: Yes All other systems reviewed and negative Physical Exam - Vital signs Vitals: Temp Pulse Resp BP Pulse Ox 97.3 F 55 L 28 H 149/102 H 98 12/06/18 09:43 12/06/18 09:43 12/06/18 09:43 12/06/18 09:43 12/06/18 09:43 - Notes Notes: Physical Exam: General: Alert, appears well. HEENT: Normocephalic. Atraumatic. PERRL. Extraocular movements intact. Oropharynx clear. Neck: Supple. Non-tender. Respiratory: No respiratory distress. Wheezing and rhonchi bilaterally. Cardiovascular: Regular rate and rhythm. Abdominal: Normal Inspection. Non-tender. No distension. Normal Bowel Sounds. Back: Non-tender. No deformity or step off. Extremities: Moves all four extremities. Upper extremities: Normal inspection. Normal ROM. Lower extremities: Normal inspection. No edema. Normal ROM. Neurological: Normal cognition. AAOx4. Stuttered speech. Psychological: Normal affect. Normal Mood. Skin: Warm. Dry. Normal color. Course - Vital Signs Vital signs: Temp Pulse Resp BP Pulse Ox 97.3 F 55 L 23 H 143/98 H 93 12/06/18 09:43 12/06/18 09:43 12/06/18 12:01 12/06/18 12:00 12/06/18 12:01 - Laboratory Result Diagrams: 12/06/18 10:26 12/06/18 10:26 Laboratory results interpreted by me: 12/06/18 12/06/18 12/06/18 10:26 10:26 10:26 RBC 3.55 L Hgb 12.5 L Hct 36.9 L MCV 104 H MCH 35.1 H NT-Pro-B Natriuret Pep 9550 H Total Protein 6.1 L - Diagnostic Test Radiology reviewed: Image reviewed, Reports reviewed - Chest x-ray shows fluid load or congestive heart failure pattern with pulmonary vascular congestion. There is interstitial edema. - EKG Interpretation by Pr EKG shows normal: Sinus rhythm, [employer], QRS Complexes. abnormal: Intervals - Prolonged QT interval, ST-T Waves - Abnormal lateral T waves Rate: Tachycardia - 103 Voltage: Consistant with LVH P Waves: LAE Critical Care Note - Critical Care Note Total time excluding time spent on procedures (mins): 35 Discharge - Discharge Clinical Impression: Congestive heart failure (CHF) Qualifiers: Heart failure type: unspecified Heart failure chronicity: acute Qualified Code(s): I50.9 - Heart failure, unspecified Dyspnea Qualifiers: Dyspnea type: dyspnea on exertion Qualified Code(s): R06.09 - Other forms of dyspnea Condition: Stable Disposition: ADMITTED INPATIENT Admitting Provider: Abigail (Hospitalist) Unit Admitted: RACHEL Willis Attestation: 12/06/18 12:50 I personally performed the services described in the documentation, reviewed and edited the documentation which was dictated to the scribe in my presence, and it accurately records my words and actions. I personally performed the services described in the documentation, reviewed and edited the documentation which was dictated to the scribe in my presence, and it accurately records my words and actions.
[2018-12-06] MEDS ORDERED: ONDANSETRON 4 MG TAB.RAPDIS PO PRN (14:19)
[2018-12-06 14:24] LABS: AMORPHOUS SEDIMENT,URINE TRACE /HPF; APPEARANCE,URINE CLOUDY; BILIRUBIN,URINE NEGATIVE (NEGATIVE); COLOR,URINE YELLOW; GLUCOSE, URINE NEGATIVE (NEGATIVE); KETONES,URINE NEGATIVE (NEGATIVE); LEUKOCYTE ESTERASE,URINE TRACE (NEGATIVE); NITRITE,URINE NEGATIVE (NEGATIVE); PROTEIN,URINE NEGATIVE (NEGATIVE); UROBILINOGEN,URINE NEGATIVE mg/dL (<2.0)
--- NOTE | 2018-12-06 15:00 | RADIOLOGY REPORT (SQ) ---
EXAM DESCRIPTION: CT CHEST WITHOUT COMPLETED DATE/TIME: 12/06/2018 2:46 pm REASON FOR STUDY: Dyspnea on exertion. PNA versus edema COMPARISON: CT chest 06/06/2007 Two-view chest 12/06/2018, 11/13/2015 TECHNIQUE: CT scan performed of the chest without intravenous contrast. Images reviewed with lung, soft tissue and bone windows. Reconstructed coronal and sagittal MPR images reviewed. All images st ored on PACS. All CT scanners at this facility use dose modulation, iterative reconstruction, and/or weight based d osing when appropriate to reduce radiation dose to as low as reasonably achievable (ALARA). [facility]: Dose Right [facility]: CareDose [facility]: Dose Right [facility]: Teradose 4D [facility]: [employer] Technologies RADIATION DOSE: CT Rad equipment meets quality standard of care and radiation dose reduction techniq ues were employed. CTDIvol: 5.4 mGy. DLP: 228 mGy-cm. mGy. LIMITATIONS: No technical limitations. FINDINGS: LUNGS AND PLEURA: There is interstitial pulmonary edema present with thickening of the int erlobular septa most noticeable over the lung apices. Trace bilateral pleural effusions are present. Minimal bibasilar atelectasis is present. Lungs demonstrate obstructive disease with hyperlucency/enlarged airspaces in the upper lobes bilater ally. Airways are patent. No pneumothorax. HILAR AND MEDIASTINAL STRUCTURES: No identified masses or abnormal nodes. No obvious aneurysm. HEART AND VASCULAR STRUCTURES: Moderate cardiomegaly UPPER ABDOMEN: Nonobstructive right midpole 5 mm stone. Bilateral renal cortical cysts. THYROID AND OTHER SOFT TISSUES: No masses. No adenopathy. BONES: Diffuse increased bony density, question renal osteodystrophy HARDWARE: None in the chest. OTHER: No other significant findings. IMPRESSION: Fluid overload or congestive failure pattern TECHNICAL DOCUMENTATION: JOB ID: [id number] Quality ID # [id number]: Final reports with documentation of one or more dose reduction techniques (e.g., Au tomated exposure control, adjustment of the mA and/or kV according to patient size, use of iterative reconstruction technique) 2010 [employer]- All Rights Reserved Reading location - IP/workstation name: [facility]
--- NOTE | 2018-12-06 15:28 | PDOC H&P ---
History of Present Illness Admission Date/PCP: 12/06/18 13:35 Patient complains of: Shortness of breath. Dyspnea on exertion History of Present Illness: SUSY CONNOLLY is a 72 year old male with a PMH of HTN, seizures, former convict (release December 2017). He presents to [facility] with a one-week history of shortness of breath and dyspnea on exertion. Patient states that he was visiting his son last week in [place] when he began feeling short of breath. He states that the symptoms progressively became worse. He endorses a dry cough. Last night the patient was coughing most of the night and unable to sleep, this prompted him to come to the emergency department this morning. Upon presentation to the ED, vital signs were relatively stable, mildly hyper tensive SBP 149/101. EKG shows sinus tachycardia with inverted T waves in leads I, II, III, aVF, V3-V6. CXR shows congestive heart failure pattern with pulmonary vascular congestion, interstitial edema and trace pleural effusions. CT chest shows interstitial pulmonary edema, bilateral effusions L>R, minimal bibasilar atelectasis. Patient treated with nebulizer x1 and 20 mg IV Lasix. On assessment, the patient is seen ambulating in the hallways in the emergency department. He does not appear to be in any distress. Patient states that he feels "much better "following the nebulizer and Lasix. Patient endorses very mild shortness of breath and orthopnea. Lungs are clear to auscultation. No evidence of peripheral or central cyanosis. S1-S2. Muscles are palpable in the upper and lower extremities. No evidence of peripheral edema. Patient denies history of heart disease, only hypertension, for which he does not take medication. Based on patient's presentation, possible diagnosis of early CHF. Plan to admit to hospitalist service for CHF exacerbation and close telemetry monitoring. Past Medical History Cardiac Medical History: Reports: Hypertension Denies: Atrial Fibrillation, Congestive Heart Failure, Myocardial Infarction, Hyperlipidema Pulmonary Medical History: Denies: Asthma, Bronchitis, Chronic Obstructive Pulmonary Disease (COPD), Pneumonia, Tuberculosis Neurological Medical History: Reports: Seizures - Patient endorses history of seizures, states he is not on any antiepileptic Denies: Migraine Endocrine Medical History: Denies: Diabetes Mellitus Type 1, Diabetes Mellitus Type 2 Renal/ Medical History: Denies: End Stage Renal Disease GI Medical History: Denies: Gastroesophageal Reflux Disease, Hiatal Hernia Musculoskeltal Medical History: Denies: Arthritis Psychiatric Medical History: Denies: Attention Deficit Hyperactivity Disorder, Bipolar Disorder, Depression Hematology: Denies: Anemia, Sickle Cell Disease Social History Information Source: Patient Lives with: Friend Smoking Status: Former Smoker Number of Years Smokin Last Time Smoked: 30 years ago Frequency of Alcohol Use: None Last Alcohol Use: 02/22/18 Hx Recreational Drug Use: Yes Drugs: Marijuana Hx Prescription Drug Abuse: No Past Social History Note: Patient was incarcerated for approximately 5 years. Released December 2017 - Advance Directive Resuscitation Status: Full Code Family History Family History: Hypertension, Other - Father: Alcoholism Parental Family History Reviewed: Yes Children Family History Reviewed: NA Sibling(s) Family History Reviewed.: NA Medication/Allergy Home Medications: Cephalexin Monohydrate [Keflex 500 mg Capsule] 500 mg PO QID 3 Days capsule 11/20/17 Baclofen [Baclofen 10 mg Tablet] 10 mg PO TID #30 tab 08/19/18 Tramadol HCl [Ultram] 50 mg PO TID #20 tablet 08/19/18 Allergies/Adverse Reactions: No Known Allergies Allergy (Verified 12/06/18 09:43) Review of Systems Constitutional: ABSENT: fever(s), headache(s), night sweats Eyes: ABSENT: visual disturbances Nose, Mouth, and Throat: ABSENT: headache(s) Cardiovascular: PRESENT: dyspnea on exertion, orthropnea. ABSENT: chest pain, edema Respiratory: PRESENT: dyspnea. ABSENT: cough Gastrointestinal: ABSENT: abdominal pain, nausea, vomiting Genitourinary: ABSENT: difficulty urinating Musculoskeletal: ABSENT: back pain, deformity Neurological: ABSENT: abnormal gait, syncope, weakness Psychiatric: ABSENT: anxiety, depression Endocrine: ABSENT: cold intolerance, heat intolerance Physical Exam Vital Signs: Temp Pulse Resp BP Pulse Ox 97.3 F 55 L 23 H 143/98 H 93 12/06/18 09:43 12/06/18 09:43 12/06/18 12:01 12/06/18 12:00 12/06/18 12:01 Intake & Output 12/05/18 12/06/18 12/07/18 06:59 06:59 06:59 Weight 64.2 kg General appearance: PRESENT: no acute distress, well-developed, well-nourished Head exam: PRESENT: atraumatic, normocephalic Eye exam: PRESENT: conjunctiva pink, EOMI, PERRLA. ABSENT: scleral icterus Ear exam: PRESENT: normal external ear exam Mouth exam: PRESENT: moist, tongue midline Teeth exam: PRESENT: edentulous Neck exam: ABSENT: carotid bruit, JVD, lymphadenopathy, thyromegaly Respiratory exam: PRESENT: clear to auscultation lin, symmetrical, unlabored. ABSENT: rales, rhonchi, wheezes Cardiovascular exam: PRESENT: RRR. ABSENT: diastolic murmur, rubs, systolic murmur Pulses: PRESENT: normal radial pulses, normal dorsalis pedis pul Vascular exam: PRESENT: normal capillary refill GI/Abdominal exam: PRESENT: normal bowel sounds, soft. ABSENT: distended, guarding, mass, organolmegaly, rebound, tenderness Rectal exam: PRESENT: deferred Extremities exam: PRESENT: full ROM. ABSENT: calf tenderness, clubbing, pedal edema Musculoskeletal exam: PRESENT: ambulatory, full ROM Neurological exam: PRESENT: alert, awake, oriented to person, oriented to place, oriented to time, oriented to situation Psychiatric exam: PRESENT: appropriate affect, normal mood Skin exam: PRESENT: dry, intact, warm. ABSENT: cyanosis, rash Results Laboratory Results: 12/06/18 10:26 12/06/18 10:26 12/06/18 12/06/18 12/06/18 10:26 10:26 13:32 WBC 5.2 RBC 3.55 L Hgb 12.5 L Hct 36.9 L MCV 104 H MCH 35.1 H MCHC 33.8 RDW 13.2 Plt Count 193 Seg Neutrophils % 56.0 Lymphocytes % 33.6 Monocytes % 7.6 Eosinophils % 1.9 Basophils % 0.9 Absolute Neutrophils 2.9 Absolute Lymphocytes 1.7 Absolute Monocytes 0.4 Absolute Eosinophils 0.1 Absolute Basophils 0.0 Sodium 142.6 Potassium 3.7 Chloride 107 Carbon Dioxide 30 Anion Gap 6 BUN 16 Creatinine 1.09 Est GFR ( Amer) > 60 Est GFR (Non-Af Amer) > 60 Glucose 95 Calcium 9.2 Total Bilirubin 1.0 AST 26 ALT 39 Alkaline Phosphatase 84 Total Protein 6.1 L Albumin 3.6 Urine Color YELLOW Urine Appearance CLOUDY Urine pH 7.0 Ur Specific [place] 1.010 Urine Protein NEGATIVE Urine Glucose (UA) NEGATIVE Urine Ketones NEGATIVE Urine Blood NEGATIVE Urine Nitrite NEGATIVE Ur Leukocyte Esterase TRACE H Urine WBC (Auto) 4 12/06/18 12/06/18 10:26 10:26 Troponin I 0.023 NT-Pro-B Natriuret Pep 9550 H Impressions: Chest X-Ray 12/06/18 10:09 IMPRESSION: Fluid overload or congestive failure pattern with pulmonary vascular congestion, interstitial edema and trace pleural effusions. Status: Imported from PACS Assessment and Plan - Diagnosis (1) Acute exacerbation of CHF (congestive heart failure) Qualifiers: Heart failure type: unspecified Qualified Code(s): I50.9 - Heart failure, unspecified Is this a current diagnosis for this admission?: Yes Plan: Patient denies history of CHF Elevated BNP (9550) and bilateral pleural effusions suggestive of CHF exacerbat ion No evidence of peripheral edema Will obtain echocardiogram Consult cardiology, appreciate their expertise Administer 20mg lasix IV daily (2) HTN (hypertension) Qualifiers: Hypertension type: essential hypertension Qualified Code(s): I10 - Essential (primary) hypertension Is this a current diagnosis for this admission?: Yes Plan: PMH HTN Currently not taking antihypertensives Well-controlled, current SBP 140s IV hydralazine 10 mg IV PRN SBP>170 (3) Seizure disorder Is this a current diagnosis for this admission?: Yes Plan: Patient endorses history of seizure disorder, although he is not taking any antiepileptics We will place on seizure precautions - Time Time Spent with patient: 15-24 minutes Medications reviewed and adjusted accordingly: Yes Anticipated discharge: Home Within: within 48 hours, within 72 hours - Inpatient Certification Based on my medical assessment, after consideration of the patient's comorbidities, presenting symptoms, or acuity I expect that the services needed warrant INPATIENT care.: Yes I certify that my determination is in accordance with my understanding of Medicare's requirements for reasonable and necessary INPATIENT services [42 CFR 412.3e].: Yes Medical Necessity: Need For Continuous Telemetry Monitoring, Risk of Complication if Not Cared For in Hospital
[2018-12-06 16:40] LABS: CREATINE KINASE MB 1.49 ng/mL (<4.55); TROPONIN I 0.025 ng/mL
--- NOTE | 2018-12-06 17:50 | EKG REPORT ---
SEVERITY:- ABNORMAL ECG - SINUS RHYTHM ERIKA, CONSIDER BIATRIAL ABNORMALITIES LEFT AXIS DEVIATION LVH WITH SECONDARY REPOLARIZATION ABNORMALITY ANTERIOR Q WAVES, POSSIBLY DUE TO LVH ABNORMAL T, PROBABLE ISCHEMIA, LATERAL LEADS PROLONGED QT INTERVAL : Confirmed by: Charles Figueroa MD 06-Dec-2018 17:50:08
[2018-12-06] MEDS: ACETAMINOPHEN 325 MG TABLET PO PRN (19:46)
[2018-12-06] MEDS: IPRATROPIUM/ALBUTEROL 0.5-2.5 MG/3 ML AMPUL NEB PRN (20:49)
[2018-12-06] MEDS: FAMOTIDINE 20 MG TABLET PO SCH (21:15)
[2018-12-06 22:48] LABS: CREATINE KINASE MB 1.19 ng/mL (<4.55); TROPONIN I 0.03 ng/mL
[2018-12-07] MEDS: LEVALBUTEROL HCL NEB 1.25 MG/3 ML AMPUL NEB PRN ×2 (00:43→09:06)
[2018-12-07 05:28] LABS: HEMATOCRIT 38.1 % (37.9-51.0); HEMOGLOBIN 12.7 g/dL (13.5-17.0); MEAN CORPUSCULAR HEMOGLOBIN 34.9 pg (27.0-33.4); MEAN CORPUSCULAR HGB CONC 33.4 g/dL (32.0-36.0); MEAN CORPUSCULAR VOLUME 105 fl (80-97); PLATELET COUNT 189 10^3/uL (150-450); RED BLOOD COUNT 3.65 10^6/uL (4.35-5.55); RED CELL DISTRIBUTION WIDTH 13.3 % (11.5-14.0); WHITE BLOOD COUNT 5.2 10^3/uL (4.0-10.5)
[2018-12-07] MEDS: IPRATROPIUM/ALBUTEROL 0.5-2.5 MG/3 ML AMPUL NEB PRN ×2 (05:56→17:39)
[2018-12-07 05:57] LABS: ALANINE AMINOTRANSFERASE 32 U/L (21-72); ALBUMIN 3.3 g/dL (3.5-5.0); ALKALINE PHOSPHATASE 81 U/L (38-126); ANION GAP 8 (5-19); ASPARTATE AMINO TRANSFERASE 18 U/L (17-59); BILIRUBIN,DIRECT 0.2 mg/dL (0.0-0.4); BLOOD UREA NITROGEN 15 mg/dL (7-20); CALCIUM 8.8 mg/dL (8.4-10.2); CARBON DIOXIDE 27 mmol/L (22-30); CHLORIDE 107 mmol/L (98-107); CHOLESTEROL 161.88 mg/dL (0-200); GLUCOSE 92 mg/dL (75-110); PHOSPHORUS 4.1 mg/dL (2.5-4.5); POTASSIUM 3.2 mmol/L (3.6-5.0); SODIUM 141.8 mmol/L (137-145); TOTAL PROTEIN 5.7 g/dL (6.3-8.2); TRIGLYCERIDES 95 mg/dL (<150)
[2018-12-07 06:07] LABS: DIRECT LDL 76 mg/dL (<100)
[2018-12-07] MEDS: FAMOTIDINE 20 MG TABLET PO SCH ×2 (09:48→21:42)
[2018-12-07] MEDS: ASPIRIN 81 MG TABLET, CHEWABLE PO SCH (09:48)
[2018-12-07] MEDS: ENOXAPARIN SODIUM INJ 40 MG/0.4 ML DISP.SYRIN SUBCUT SCH (09:48)
[2018-12-07] MEDS: LISINOPRIL 5 MG TABLET PO SCH (09:54)
[2018-12-07] MEDS: METOPROLOL SUCCINATE 25 MG TAB.SR.24H PO SCH ×2 (09:55→21:42)
[2018-12-07] MEDS ORDERED: MAGNESIUM SULFATE/D5W 1 GM/100 ML RTUPB IV ONE (10:00)
--- NOTE | 2018-12-07 10:15 | EKG REPORT ---
SEVERITY:- ABNORMAL ECG - SINUS RHYTHM VENTRICULAR PREMATURE COMPLEX PROBABLE LEFT ATRIAL ABNORMALITY LEFT AXIS DEVIATION LVH WITH SECONDARY REPOLARIZATION ABNORMALITY ANTERIOR Q WAVES, POSSIBLY DUE TO LVH REPOL ABNRM, PROBABLE ISCHEMIA, ANT-LAT LEADS PROLONGED QT INTERVAL : Confirmed by: Charles Figueroa MD 07-Dec-2018 10:14:41
[2018-12-07] MEDS ORDERED: POTASSIUM CHLORIDE 10 MEQ CAPSULE.ER PO ONE (11:00)
--- NOTE | 2018-12-07 12:52 | XCELERA REPORT ---
[address] [address] Transthoracic Echocardiogram Report Name: SUSY CONNOLLY Age: 72 yrs Gender: Male : 1945 Patient Status: [facility]: 12/07/2018 10:04 AM Height: 68 in Weight: 141 lb BSA: 1.8 m2 Reason For Study: NEW CHF Ordering Physician: SUNNY CALLEJAS Performed By: Daniel Baptiste Interpretation Summary Study quality fair with some suboptimal images. Lack of contrast opacification limits evaluation for intracardiac mass/ thrombus. LV cavity severely dilated with severelt decreased LVEF at 20-25%, RV systolic function appears normal. The transmitral spectral Doppler flow pattern is abnormal for age AV leaflets appear focally calcified/ thickened with mild aortic regurgitation. Transaortic jet velocity/gradients might be underestimated due to low flow state. There is a mild amount of mitral regurgitation There is no pericardial effusion. The aortic root is normal size. The inferior vena cava appeared small and collapsed with respiration (RAP 0-5 mmHg) MMode/2D Measurements & Calculations RVDd: 2.3 cm LVIDd: 6.8 cm FS: 12.5 % Ao root diam: 3.3 cm IVSd: 0.57 cm LVIDs: 5.9 cm EDV(Teich): 239.4 ml LVPWd: 0.58 cm ESV(Teich): 176.5 ml Ao root area: 8.4 cm2 EF(Teich): 26.3 % LVOT diam: 1.8 cm LVOT area: 2.6 cm2 Doppler Measurements & Calculations MV E max blanca: MV dec slope: Ao V2 max: AI max blanca: 93.1 cm/sec 315.1 cm/sec2 179.7 cm/sec 304.0 cm/sec MV A max blanca: MV dec time: Ao max PG: AI max P.3 mmHg 29.1 cm/sec 0.30 sec 12.9 mmHg AI dec slope: MV E/A: 3.2 MATT(V,D): 2.0 hp2454.7 cm/sec2 AI P1/2t: 318.4 msec LV V1 max PG: PA V2 max: 7.5 mmHg 99.8 cm/sec LV V1 max: PA max P.0 mmHg 136.6 cm/sec Left Ventricle The left ventricle is severely dilated. False tendon noted in LV cavity. Left ventricular systolic function is severely reduced. LV EF is 20-25%. The transmitral spectral Doppler flow pattern is abnormal for age. There is severe global hypokinesis of the left ventricle. Right Ventricle The right ventricular systolic function is normal. Atria The right atrium is normal. No atrial dimensions provided but left atrium appears dilated. Mitral Valve There is moderate mitral leaflet calcification. MV leaflets appear focally thickened/ calcified. There is a mild amount of mitral regurgitation. Aortic Valve The aortic valve is not well visualized secondary to technical limitations. The aortic valve is moderately calcified. There is a peak gradient of 12.91 mm of Hg. There is a mild amount of aortic regurgitation. Tricuspid Valve The tricuspid valve is not well visualized secondary to technical limitations. Tricuspid regurgitation jet envelope not well defined to measure RV systolic pressure accurately. RVSP could not be estimated. Pulmonic Valve The pulmonic valve is not well visualized. Great Vessels There is aortic root sclerosis/calcification. The aortic root is normal size. The inferior vena cava appeared small and collapsed with respiration (RAP 0-5 mmHg). Effusions There is no pericardial effusion. : SUNNY CALLEJAS > Miguel Quezada
--- NOTE | 2018-12-07 13:37 | PDOC CONSULTATION ---
Consultation Consult Date: 12/07/18 Provider Consulted: SUNNY CALLEJAS Consult reason:: CHF History of Present Illness Admission Date/PCP: 12/06/18 13:35 History of Present Illness: SUSY CONNOLLY is a 72 year old male With past medical history of hypertension, cigarette smoking, history of seizure disorder was admitted with complaints of progressively worsening shortness of breath, more so on exertion and on initial evaluation found to have an elevated BNP level. He denied any klaus chest pain or dizziness or palpitations. Patient was recently visiting his son in [place] after which his breathing got worse. He denies any history of fever or chills or rigors. He denies any swelling of his lower extremities. He smokes cigarettes for 30 years but then quit during the. He was incarcerated but since his release from long-term he started smoking cigarettes again. Denies alcohol abuse. Has used marijuana in the past. He is but his is in [place] and currently is living with a friend. Past Medical History Cardiac Medical History: Reports: Hypertension Denies: Atrial Fibrillation, Congestive Heart Failure, Myocardial Infarction, Hyperlipidema Pulmonary Medical History: Denies: Asthma, Bronchitis, Chronic Obstructive Pulmonary Disease (COPD), Pneumonia, Tuberculosis Neurological Medical History: Reports: Seizures - Patient endorses history of seizures, states he is not on any antiepileptic Denies: Migraine Endocrine Medical History: Denies: Diabetes Mellitus Type 1, Diabetes Mellitus Type 2 Renal/ Medical History: Denies: End Stage Renal Disease GI Medical History: Denies: Gastroesophageal Reflux Disease, Hiatal Hernia Musculoskeltal Medical History: Denies: Arthritis Psychiatric Medical History: Reports: Substance Abuse, Tobacco Dependency Denies: Attention Deficit Hyperactivity Disorder, Bipolar Disorder, Depression Hematology: Denies: Anemia, Sickle Cell Disease Social History Lives with: Friend Smoking Status: Current Every Day Smoker Number of Years Smokin Last Time Smoked: 30 years ago Frequency of Alcohol Use: None Hx Recreational Drug Use: Yes Drugs: Marijuana Hx Prescription Drug Abuse: No - Advance Directive Resuscitation Status: Full Code Family History Family History: Hypertension, Other - Father: Alcoholism Parental Family History Reviewed: Yes - heart disease Children Family History Reviewed: Unknown Sibling(s) Family History Reviewed.: Unknown Medication/Allergy Home Medications: No Home Medications 12/06/18 Allergies/Adverse Reactions: No Known Allergies Allergy (Verified 12/06/18 09:43) Review of Systems Cardiovascular: PRESENT: dyspnea on exertion Respiratory: PRESENT: cough Physical Exam Vital Signs: Temp Pulse Resp BP Pulse Ox 97.2 F 102 H 12 145/92 H 99 12/07/18 12:00 12/07/18 12:00 12/07/18 12:00 12/07/18 12:00 12/07/18 12:00 Intake & Output 12/06/18 12/07/18 12/08/18 06:59 06:59 06:59 Intake Total 100 Balance 100 Weight 63.1 kg General appearance: PRESENT: no acute distress, thin Head exam: PRESENT: atraumatic, normocephalic Mouth exam: PRESENT: neck supple Neck exam: PRESENT: full ROM Respiratory exam: PRESENT: other - Bilateral air entry heard with occasional basilar crepitus. No wheeze heard. Cardiovascular exam: PRESENT: +S1, +S2 Pulses: PRESENT: normal radial pulses, normal dorsalis pedis pul GI/Abdominal exam: PRESENT: normal bowel sounds, soft Extremities exam: PRESENT: full ROM Neurological exam: PRESENT: alert, awake, oriented to person, oriented to place, oriented to situation, CN II-XII grossly intact Psychiatric exam: PRESENT: anxious Results Laboratory Results: 12/07/18 05:03 12/07/18 05:03 12/06/18 12/07/18 12/07/18 13:32 05:03 05:03 WBC 5.2 RBC 3.65 L Hgb 12.7 L Hct 38.1 MCV 105 H MCH 34.9 H MCHC 33.4 RDW 13.3 Plt Count 189 Sodium 141.8 Potassium 3.2 L Chloride 107 Carbon Dioxide 27 Anion Gap 8 BUN 15 Creatinine 0.99 Est GFR ( Amer) > 60 Est GFR (Non-Af Amer) > 60 Glucose 92 Calcium 8.8 Phosphorus 4.1 Magnesium 1.9 Total Bilirubin 1.0 AST 18 ALT 32 Alkaline Phosphatase 81 Total Protein 5.7 L Albumin 3.3 L Triglycerides 95 Cholesterol 161.88 LDL Cholesterol Direct 76 VLDL Cholesterol 19.0 HDL Cholesterol 66 TSH Urine Color YELLOW Urine Appearance CLOUDY Urine pH 7.0 Ur Specific [place] 1.010 Urine Protein NEGATIVE Urine Glucose (UA) NEGATIVE Urine Ketones NEGATIVE Urine Blood NEGATIVE Urine Nitrite NEGATIVE Ur Leukocyte Esterase TRACE H Urine WBC (Auto) 4 12/07/18 05:03 WBC RBC Hgb Hct MCV MCH MCHC RDW Plt Count Sodium Potassium Chloride Carbon Dioxide Anion Gap BUN Creatinine Est GFR ( Amer) Est GFR (Non-Af Amer) Glucose Calcium Phosphorus Magnesium Total Bilirubin AST ALT Alkaline Phosphatase Total Protein Albumin Triglycerides Cholesterol LDL Cholesterol Direct VLDL Cholesterol HDL Cholesterol TSH 1.68 Urine Color Urine Appearance Urine pH Ur Specific [place] Urine Protein Urine Glucose (UA) Urine Ketones Urine Blood Urine Nitrite Ur Leukocyte Esterase Urine WBC (Auto) 12/06/18 12/06/18 12/06/18 10:26 10:26 15:53 CK-MB (CK-2) 1.49 Troponin I 0.023 0.025 NT-Pro-B Natriuret Pep 9550 H 12/06/18 12/07/18 12/07/18 21:50 05:03 05:03 CK-MB (CK-2) 1.19 Troponin I 0.030 0.032 NT-Pro-B Natriuret Pep 9970 H 12/07/18 11:10 CK-MB (CK-2) Troponin I 0.019 NT-Pro-B Natriuret Pep Impressions: Chest X-Ray 12/06/18 10:09 IMPRESSION: Fluid overload or congestive failure pattern with pulmonary vascular congestion, interstitial edema and trace pleural effusions. Chest CT 12/06/18 14:19 IMPRESSION: Fluid overload or congestive failure pattern Assessment & Plan - Diagnosis (1) Acute exacerbation of CHF (congestive heart failure) Qualifiers: Heart failure type: combined systolic and diastolic Qualified Code(s): I50.43 - Acute on chronic combined systolic (congestive) and diastolic (congestive) heart failure Is this a current diagnosis for this admission?: Yes (2) HTN (hypertension) Qualifiers: Hypertension type: essential hypertension Qualified Code(s): I10 - Essential (primary) hypertension Is this a current diagnosis for this admission?: Yes (4) Seizure disorder Is this a current diagnosis for this admission?: Yes - Notes Notes: Reviewed labs, EKG, telemetry and imaging tests 72-year-old male presents with acute heart failure symptoms with elevated proBNP level and echocardiogram shows severely decreased LVEF at 20 to 25% with diastolic dysfunction. Agree with guideline directed heart failure therapy including aspirin, beta-sourav and MATILDA inhibitor along with IV diuretic initially and will recommend institution of statin therapy for risk factor reduction. Patient will need ischemia evaluation as soon as he is euvolemic. Will discuss with interventional cardiology about diagnostic cardiac catheterization to rule out obstructive coronary artery disease due to his risk factors for atherosclerotic cardiovascular disease. Supplement potassium and monitor intake/output closely. Smoking cessation education done. We will follow closely with you. - Time Time Spent: Greater than 70 Minutes Smoking Education Provided: Over 3 minutes
--- NOTE | 2018-12-07 15:41 | PDOC PROGRESS REPORT ---
Subjective Progress Note for:: 12/07/18 Subjective:: SUSY CONNOLLY is a 72 year old male with a PMH of HTN, seizures, former convict (release December 2017). The patient presented to [facility] with shortness of breath and dyspnea on exertion. He is admitted to the hospitalist service for a new diagnosis of CHF. Patient was seen this morning on rounds, he is resting comfortably in bed on room air. He states that he feels "much better "no longer experiences dyspnea with exertion. Discussed findings of the CT chest with the patient and family. Told them that the patient's presenting symptoms are likely secondary to early heart failure. Currently awaiting echocardiogram and consultation with narcotics agent. Nursing staff notify provider that the patient has been relatively hypertensive, specifically elevated diastolic blood pressure > 100. Currently only on IV hydralazine PRN, plan to initiate p.o. Toprol XL and conceived sourav. Continue twice daily Lasix. Will remain inpatient for CHF work-up. Reason For Visit: DYSPNEA Physical Exam Vital Signs: Temp Pulse Resp BP Pulse Ox 97.2 F 85 12 145/92 H 99 12/07/18 12:00 12/07/18 14:00 12/07/18 12:00 12/07/18 12:00 12/07/18 12:00 Intake & Output 12/06/18 12/07/18 12/08/18 06:59 06:59 06:59 Intake Total 100 Balance 100 Weight 63.1 kg General appearance: PRESENT: no acute distress, thin Head exam: PRESENT: atraumatic, normocephalic Eye exam: PRESENT: conjunctiva pink, EOMI, PERRLA. ABSENT: scleral icterus Ear exam: PRESENT: normal external ear exam Mouth exam: PRESENT: moist, tongue midline Teeth exam: PRESENT: edentulous Neck exam: ABSENT: carotid bruit, JVD, lymphadenopathy, thyromegaly Respiratory exam: PRESENT: clear to auscultation lin, symmetrical, unlabored. ABSENT: rales, rhonchi, wheezes Cardiovascular exam: PRESENT: RRR. ABSENT: diastolic murmur, rubs, systolic murmur Pulses: PRESENT: normal radial pulses, normal dorsalis pedis pul Vascular exam: PRESENT: normal capillary refill GI/Abdominal exam: PRESENT: normal bowel sounds, soft. ABSENT: distended, guarding, mass, organolmegaly, rebound, tenderness Rectal exam: PRESENT: deferred Extremities exam: PRESENT: full ROM. ABSENT: calf tenderness, clubbing, pedal edema Musculoskeletal exam: PRESENT: ambulatory, full ROM Neurological exam: PRESENT: alert, awake, oriented to person, oriented to place, oriented to time, oriented to situation Psychiatric exam: PRESENT: appropriate affect, normal mood Skin exam: PRESENT: dry, intact, warm. ABSENT: cyanosis, rash Results Laboratory Results: 12/07/18 05:03 12/07/18 05:03 12/07/18 12/07/18 12/07/18 05:03 05:03 05:03 WBC 5.2 RBC 3.65 L Hgb 12.7 L Hct 38.1 MCV 105 H MCH 34.9 H MCHC 33.4 RDW 13.3 Plt Count 189 Sodium 141.8 Potassium 3.2 L Chloride 107 Carbon Dioxide 27 Anion Gap 8 BUN 15 Creatinine 0.99 Est GFR ( Amer) > 60 Est GFR (Non-Af Amer) > 60 Glucose 92 Calcium 8.8 Phosphorus 4.1 Magnesium 1.9 Total Bilirubin 1.0 AST 18 ALT 32 Alkaline Phosphatase 81 Total Protein 5.7 L Albumin 3.3 L Triglycerides 95 Cholesterol 161.88 LDL Cholesterol Direct 76 VLDL Cholesterol 19.0 HDL Cholesterol 66 TSH 1.68 12/06/18 12/06/18 12/06/18 10:26 10:26 15:53 CK-MB (CK-2) 1.49 Troponin I 0.023 0.025 NT-Pro-B Natriuret Pep 9550 H 12/06/18 12/07/18 12/07/18 21:50 05:03 05:03 CK-MB (CK-2) 1.19 Troponin I 0.030 0.032 NT-Pro-B Natriuret Pep 9970 H 12/07/18 11:10 CK-MB (CK-2) Troponin I 0.019 NT-Pro-B Natriuret Pep Impressions: Chest X-Ray 12/06/18 10:09 IMPRESSION: Fluid overload or congestive failure pattern with pulmonary vascular congestion, interstitial edema and trace pleural effusions. Chest CT 12/06/18 14:19 IMPRESSION: Fluid overload or congestive failure pattern Status: Imported from PACS Assessment and Plan - Diagnosis (1) Acute exacerbation of CHF (congestive heart failure) Qualifiers: Heart failure type: combined systolic and diastolic Qualified Code(s): I50.43 - Acute on chronic combined systolic (congestive) and diastolic (congestive) heart failure Is this a current diagnosis for this admission?: Yes Plan: Patient denies history of CHF Elevated BNP (9970) and bilateral pleural effusions suggestive of CHF exacerbation No evidence of peripheral edema Echocardiogram complete, awaiting results Consulted cardiology, appreciate their expertise Administer 20mg lasix IV daily Inititated low dose BB and CCB (2) HTN (hypertension) Qualifiers: Hypertension type: essential hypertension Qualified Code(s): I10 - Essential (primary) hypertension Is this a current diagnosis for this admission?: Yes Plan: [facility] HTN, states he was diagnosed while he was in nursing home but has not taken an antihypertensive since his release last year Current SBP 140-150 DBP > 100 IV hydralazine 10 mg IV PRN SBP>170 Initiated Toprol-XL 12.5 mg p.o. twice daily and 5 mg lisinopril daily (3) Seizure disorder Is this a current diagnosis for this admission?: Yes Plan: Patient endorses history of seizure disorder, although he is not taking any antiepileptics We will place on seizure precautions - Time Time Spent with patient: 15-24 minutes Medications reviewed and adjusted accordingly: Yes Anticipated discharge: Home Within: within 24 hours - Inpatient Certification Based on my medical assessment, after consideration of the patient's comorbidities, presenting symptoms, or acuity I expect that the services needed warrant INPATIENT care.: Yes I certify that my determination is in accordance with my understanding of Medicare's requirements for reasonable and necessary INPATIENT services [42 CFR 412.3e].: Yes Medical Necessity: Need For Continuous Telemetry Monitoring, Risk of Complication if Not Cared For in Hospital
[2018-12-07] MEDS ORDERED: FUROSEMIDE INJ/PF 40 MG/4 ML SDV ONE (18:51)
[2018-12-07] MEDS ORDERED: FUROSEMIDE INJ/PF 40 MG/4 ML SDV IV ONE (19:00)
[2018-12-07] MEDS: METOPROLOL TARTRATE PF/INJ 5 MG/5 ML SDV IV PRN (20:47)
[2018-12-08] MEDS: METOPROLOL TARTRATE PF/INJ 5 MG/5 ML SDV IV PRN (05:37)
[2018-12-08] MEDS: ACETAMINOPHEN 325 MG TABLET PO PRN (06:22)
[2018-12-08] MEDS: FAMOTIDINE 20 MG TABLET PO SCH ×2 (09:55→21:38)
[2018-12-08] MEDS: LISINOPRIL 5 MG TABLET PO SCH (09:55)
[2018-12-08] MEDS: ASPIRIN 81 MG TABLET, CHEWABLE PO SCH (09:56)
[2018-12-08] MEDS: METOPROLOL SUCCINATE 25 MG TAB.SR.24H PO SCH ×2 (09:56→21:38)
[2018-12-08] MEDS: ENOXAPARIN SODIUM INJ 40 MG/0.4 ML DISP.SYRIN SUBCUT SCH (09:57)
[2018-12-08] MEDS: POTASSIUM CHLORIDE 10 MEQ CAPSULE.ER PO SCH (09:57)
[2018-12-08] MEDS ORDERED: FUROSEMIDE INJ/PF 40 MG/4 ML SDV IV SCH (10:00)
--- NOTE | 2018-12-08 10:18 | PDOC PROGRESS REPORT ---
Subjective Progress Note for:: 12/08/18 Reason For Visit: DYSPNEA Patient seen at bedside and claims that he feels much better after he got IV Lasix last night when he got short of breath. Denies any chest pain or acute shortness of breath this morning. Physical Exam Vital Signs: Temp Pulse Resp BP Pulse Ox 98.8 F 86 16 137/95 H 96 12/08/18 01:00 12/08/18 07:00 12/07/18 20:00 12/08/18 06:24 12/07/18 17:39 Intake & Output 12/07/18 12/08/18 12/09/18 06:59 06:59 06:59 Intake Total 740 Output Total 800 Balance -60 Weight 63.1 kg 63.1 kg General appearance: PRESENT: no acute distress Head exam: PRESENT: atraumatic, normocephalic Mouth exam: PRESENT: moist, neck supple Neck exam: PRESENT: other - CLAUDIA noted 4 to 5 cm above right clavicle. Respiratory exam: PRESENT: clear to auscultation lin, unlabored Cardiovascular exam: PRESENT: +S1, +S2 Pulses: PRESENT: normal radial pulses, normal dorsalis pedis pul Vascular exam: PRESENT: normal capillary refill GI/Abdominal exam: PRESENT: normal bowel sounds, soft Musculoskeletal exam: PRESENT: full ROM Neurological exam: PRESENT: alert, awake, oriented to time, oriented to situat ion, CN II-XII grossly intact Results Laboratory Results: 12/07/18 05:03 12/07/18 05:03 12/06/18 12/06/18 12/06/18 10:26 10:26 15:53 CK-MB (CK-2) 1.49 Troponin I 0.023 0.025 NT-Pro-B Natriuret Pep 9550 H 12/06/18 12/07/18 12/07/18 21:50 05:03 05:03 CK-MB (CK-2) 1.19 Troponin I 0.030 0.032 NT-Pro-B Natriuret Pep 9970 H 12/07/18 12/07/18 11:10 17:44 CK-MB (CK-2) Troponin I 0.019 0.024 NT-Pro-B Natriuret Pep Impressions: Chest X-Ray 12/06/18 10:09 IMPRESSION: Fluid overload or congestive failure pattern with pulmonary vascular congestion, interstitial edema and trace pleural effusions. Chest CT 12/06/18 14:19 IMPRESSION: Fluid overload or congestive failure pattern Assessment & Plan - Diagnosis (1) Acute exacerbation of CHF (congestive heart failure) Qualifiers: Heart failure type: combined systolic and diastolic Qualified Code(s): I50.43 - Acute on chronic combined systolic (congestive) and diastolic (conges tive) heart failure Is this a current diagnosis for this admission?: Yes (2) HTN (hypertension) Qualifiers: Hypertension type: essential hypertension Qualified Code(s): I10 - Essential (primary) hypertension Is this a current diagnosis for this admission?: Yes (4) Seizure disorder Is this a current diagnosis for this admission?: Yes - Notes Notes: Reviewed telemetry which showed predominant sinus tachycardia with no significant tachyarrhythmias noted. Reviewed labs and intake output. Patient with combined severe systolic and diastolic heart failure responding well to diuretic therapy and guideline directed heart failure therapy with aspirin, beta-sourav and MATILDA inhibitor. Will recommend additional statin therapy for risk factor reduction. In view of his severe combined systolic and diastolic heart failure would recommend interventional cardiology consult for consider ation for cardiac catheterization to rule out obstructive coronary artery disease. Recommend to follow intake output closely and monitor electrolytes while on IV diuretic. We will follow closely with you. - Time Time with patient: 15-25 minutes
[2018-12-08] MEDS: LEVALBUTEROL HCL NEB 1.25 MG/3 ML AMPUL NEB PRN (10:24)
[2018-12-08 10:29] LABS: HEMATOCRIT 42.8 % (37.9-51.0); HEMOGLOBIN 14.3 g/dL (13.5-17.0); MEAN CORPUSCULAR HEMOGLOBIN 35.1 pg (27.0-33.4); MEAN CORPUSCULAR HGB CONC 33.5 g/dL (32.0-36.0); MEAN CORPUSCULAR VOLUME 105 fl (80-97); PLATELET COUNT 224 10^3/uL (150-450); RED BLOOD COUNT 4.07 10^6/uL (4.35-5.55); RED CELL DISTRIBUTION WIDTH 13.3 % (11.5-14.0); WHITE BLOOD COUNT 6.9 10^3/uL (4.0-10.5)
[2018-12-08 11:13] LABS: ALANINE AMINOTRANSFERASE 24 U/L (21-72); ALBUMIN 3.8 g/dL (3.5-5.0); ALKALINE PHOSPHATASE 78 U/L (38-126); ANION GAP 9 (5-19); ASPARTATE AMINO TRANSFERASE 19 U/L (17-59); BILIRUBIN,DIRECT 0.2 mg/dL (0.0-0.4); BILIRUBIN,TOTAL 1.2 mg/dL (0.2-1.3); BLOOD UREA NITROGEN 17 mg/dL (7-20); CALCIUM 9.5 mg/dL (8.4-10.2); CARBON DIOXIDE 28 mmol/L (22-30); CHLORIDE 104 mmol/L (98-107); GLUCOSE 104 mg/dL (75-110); PHOSPHORUS 3.5 mg/dL (2.5-4.5); POTASSIUM 4.4 mmol/L (3.6-5.0); SODIUM 141.3 mmol/L (137-145); TOTAL PROTEIN 6.6 g/dL (6.3-8.2)
[2018-12-08] MEDS ORDERED: METOPROLOL SUCCINATE 25 MG TAB.SR.24H PO ONE (11:45)
[2018-12-08] MEDS ORDERED: ONDANSETRON 4 MG TAB.RAPDIS PO PRN (13:00)
--- NOTE | 2018-12-08 15:49 | PDOC PROGRESS REPORT ---
Subjective Progress Note for:: 12/08/18 Subjective:: SUSY CONNOLLY is a 72 year old male with a PMH of HTN, seizures, former convict (release December 2017). The patient presented to [facility] with shortness of breath and dyspnea on exertion. He is admitted to the hospitalist service for a new diagnosis of CHF. Patient was seen this morning on rounds, he is resting comfortably in bed on room air. He states that he feels "great " today. ECHOcardiogram done yesterday shows the patient has an LVEF 20%. The patient was started on a beta-sourva, CCB and daily diuretic. Nursing staff reports that the patient became acutely short of breath last night after lying supine for period of time in bed. Patient was given an additional dosage of IV Lasix. Dr. Quezada, cardiology, discussed the findings of the echocardiogram extensively with the patient. He is recommending cardiac catheterization. Today, on exam, the patient is resting comfortably in bed. LCTA. Pulses are palpable in the upper and lower extremities. No evidence of peripheral edema. He is able to speak in full sentences without pause. Discussed patient's case with Medical Doctor Md supervising RN. Dr. Parrish, interventional cardiology, will evaluate patient tomorrow and likely perform cardiac catheterization tomorrow afternoon. Will remain inpatient for CHF work-up. Reason For Visit: NEW CHF, LVEF 20%, DYSPNEA Physical Exam Vital Signs: Temp Pulse Resp BP Pulse Ox 98.8 F 114 H 18 137/95 H 95 12/08/18 01:00 12/08/18 10:27 12/08/18 10:27 12/08/18 06:24 12/08/18 10:27 Intake & Output 12/07/18 12/08/18 12/09/18 06:59 06:59 06:59 Intake Total 740 Output Total 800 Balance -60 Weight 63.1 kg 63.1 kg General appearance: PRESENT: no acute distress, thin Head exam: PRESENT: atraumatic, normocephalic Eye exam: PRESENT: conjunctiva pink, EOMI, PERRLA. ABSENT: scleral icterus Ear exam: PRESENT: normal external ear exam Mouth exam: PRESENT: moist, tongue midline Teeth exam: PRESENT: edentulous Neck exam: PRESENT: full ROM. ABSENT: carotid bruit, JVD, lymphadenopathy, thyromegaly Respiratory exam: PRESENT: clear to auscultation lin, symmetrical, unlabored. ABSENT: rales, rhonchi, wheezes Cardiovascular exam: PRESENT: RRR, +S1, +S2. ABSENT: diastolic murmur, rubs, systolic murmur Pulses: PRESENT: normal radial pulses, normal dorsalis pedis pul Vascular exam: PRESENT: normal capillary refill GI/Abdominal exam: PRESENT: normal bowel sounds, soft. ABSENT: distended, guarding, mass, organolmegaly, rebound, tenderness Rectal exam: PRESENT: deferred Extremities exam: PRESENT: full ROM. ABSENT: calf tenderness, clubbing, pedal edema Musculoskeletal exam: PRESENT: ambulatory, full ROM Neurological exam: PRESENT: alert, awake, oriented to person, oriented to place, oriented to time, oriented to situation Psychiatric exam: PRESENT: appropriate affect, normal mood Skin exam: PRESENT: dry, intact, warm. ABSENT: cyanosis, rash Results Laboratory Results: 12/08/18 10:13 12/08/18 10:13 12/08/18 12/08/18 10:13 10:13 WBC 6.9 RBC 4.07 L Hgb 14.3 Hct 42.8 MCV 105 H MCH 35.1 H MCHC 33.5 RDW 13.3 Plt Count 224 Sodium 141.3 Potassium 4.4 Chloride 104 Carbon Dioxide 28 Anion Gap 9 BUN 17 Creatinine 1.13 Est GFR ( Amer) > 60 Est GFR (Non-Af Amer) > 60 Glucose 104 Calcium 9.5 Phosphorus 3.5 Magnesium 2.1 Total Bilirubin 1.2 AST 19 ALT 24 Alkaline Phosphatase 78 Total Protein 6.6 Albumin 3.8 12/06/18 12/06/18 12/06/18 10:26 10:26 15:53 CK-MB (CK-2) 1.49 Troponin I 0.023 0.025 NT-Pro-B Natriuret Pep 9550 H 12/06/18 12/07/18 12/07/18 21:50 05:03 05:03 CK-MB (CK-2) 1.19 Troponin I 0.030 0.032 NT-Pro-B Natriuret Pep 9970 H 12/07/18 12/07/18 12/08/18 11:10 17:44 10:13 CK-MB (CK-2) Troponin I 0.019 0.024 NT-Pro-B Natriuret Pep 55794 H Impressions: Chest X-Ray 12/06/18 10:09 IMPRESSION: Fluid overload or congestive failure pattern with pulmonary vascular congestion, interstitial edema and trace pleural effusions. Chest CT 12/06/18 14:19 IMPRESSION: Fluid overload or congestive failure pattern Status: Imported from PACS Assessment and Plan - Diagnosis (1) Acute exacerbation of CHF (congestive heart failure) Qualifiers: Heart failure type: combined systolic and diastolic Qualified Code(s): I50.43 - Acute on chronic combined systolic (congestive) and diastolic (congestive) heart failure Is this a current diagnosis for this admission?: Yes Plan: Patient denies history of CHF Elevated BNP (9950-->35220) and bilateral pleural effusions suggestive of CHF exacerbation No evidence of peripheral edema Echocardiogram complete, LVEF 20% Consulted cardiology, appreciate their expertise Increased Lasix from 20 mg to 40 mg IV daily Continue Toprol-XL and lisinopril Continue atorvastatin (2) HTN (hypertension) Qualifiers: Hypertension type: essential hypertension Qualified Code(s): I10 - Essential (primary) hypertension Is this a current diagnosis for this admission?: Yes Plan: [facility] HTN, states he was diagnosed while he was in prison but has not taken an antihypertensive since his release last year BP well controlled IV hydralazine 10 mg IV PRN SBP>170 Continue Toprol-XL 25 mg p.o. twice daily and 5 mg lisinopril daily (3) Seizure disorder Is this a current diagnosis for this admission?: Yes Plan: Patient endorses history of seizure disorder, although he is not taking any antiepileptics We will place on seizure precautions - Time Time Spent with patient: 15-24 minutes Medications reviewed and adjusted accordingly: Yes Anticipated discharge: Home Within: within 48 hours - Inpatient Certification Based on my medical assessment, after consideration of the patient's comorbidit ies, presenting symptoms, or acuity I expect that the services needed warrant INPATIENT care.: Yes I certify that my determination is in accordance with my understanding of Me marilee's requirements for reasonable and necessary INPATIENT services [42 CFR 412.3e].: Yes Medical Necessity: Need Close Monitoring Due to Risk of Patient Decompensation, Need For Continuous Telemetry Monitoring, Risk of Complication if Not Cared For in Hospital
[2018-12-09] MEDS ORDERED: HYDRALAZINE HCL INJ/PF 20 MG/1 ML SDV IV PRN (04:55)
[2018-12-09] MEDS ORDERED: VERAPAMIL HCL 5 MG, LIDOCAINE HCL/PF 2 ML, NORMAL SALINE 6 ML in SYRINGE, DISPOSABLE, 1... IV PRN (05:00)
[2018-12-09] MEDS ORDERED: HEPARIN SODIUM,PORCINE/NS/PF 2,000 UNIT/1,000 ML RTUINJ IV ONE (07:36)
[2018-12-09] MEDS ORDERED: LIDOCAINE 1% INJ-PF (10 MG/ML) 30 ML SDV ONE (07:36)
[2018-12-09] MEDS ORDERED: HEPARIN SOD (PORCINE) 1,000 UNIT/ML 10 ML VIAL ONE (07:42)
[2018-12-09] MEDS ORDERED: FENTANYL CITRATE INJ/PF 100 MCG/2 ML AMPUL ONE (07:42)
[2018-12-09] MEDS ORDERED: MIDAZOLAM 2 MG/2 ML INJ ONE (07:42)
[2018-12-09] MEDS ORDERED: DIPHENHYDRAMINE HCL 50 MG/ML VIAL ONE (08:48)
--- NOTE | 2018-12-09 08:48 | PDOC PROGRESS REPORT ---
Subjective Progress Note for:: 12/09/18 Reason For Visit: NEW CHF, LVEF 20%, DYSPNEA Patient seen at bedside and still gets short of breath on mild exertion but claims he is able to lie down flat. Denies any chest pain. Physical Exam Vital Signs: Temp Pulse Resp BP Pulse Ox 98.3 F 112 H 17 132/86 H 97 12/08/18 23:38 12/09/18 05:34 12/08/18 23:38 12/09/18 05:34 12/08/18 23:38 Intake & Output 12/08/18 12/09/18 12/10/18 06:59 06:59 06:59 Intake Total 740 Output Total 800 400 Balance -60 -400 Weight 63.1 kg 61.5 kg General appearance: PRESENT: no acute distress Mouth exam: PRESENT: moist, neck supple Neck exam: PRESENT: full ROM, other - JVP noted 4 cm above right clavicle. Respiratory exam: PRESENT: clear to auscultation lin, other - 10 chest wall Cardiovascular exam: PRESENT: +S1, +S2 Pulses: PRESENT: normal radial pulses, normal dorsalis pedis pul Vascular exam: PRESENT: normal capillary refill GI/Abdominal exam: PRESENT: normal bowel sounds, soft Extremities exam: PRESENT: full ROM Musculoskeletal exam: PRESENT: ambulatory Neurological exam: PRESENT: alert, awake, oriented to person, oriented to place, oriented to time, oriented to situation, CN II-XII grossly intact Results Laboratory Results: 12/08/18 12/08/18 10:13 10:13 WBC 6.9 RBC 4.07 L Hgb 14.3 Hct 42.8 MCV 105 H MCH 35.1 H MCHC 33.5 RDW 13.3 Plt Count 224 Sodium 141.3 Potassium 4.4 Chloride 104 Carbon Dioxide 28 Anion Gap 9 BUN 17 Creatinine 1.13 Est GFR ( Amer) > 60 Est GFR (Non-Af Amer) > 60 Glucose 104 Calcium 9.5 Phosphorus 3.5 Magnesium 2.1 Total Bilirubin 1.2 AST 19 ALT 24 Alkaline Phosphatase 78 Total Protein 6.6 Albumin 3.8 12/06/18 12/06/18 12/06/18 10:26 10:26 15:53 CK-MB (CK-2) 1.49 Troponin I 0.023 0.025 NT-Pro-B Natriuret Pep 9550 H 12/06/18 12/07/18 12/07/18 21:50 05:03 05:03 CK-MB (CK-2) 1.19 Troponin I 0.030 0.032 NT-Pro-B Natriuret Pep 9970 H 12/07/18 12/07/18 12/08/18 11:10 17:44 10:13 CK-MB (CK-2) Troponin I 0.019 0.024 NT-Pro-B Natriuret Pep 25142 H Impressions: Chest X-Ray 12/06/18 10:09 IMPRESSION: Fluid overload or congestive failure pattern with pulmonary vascular congestion, interstitial edema and trace pleural effusions. Chest CT 12/06/18 14:19 IMPRESSION: Fluid overload or congestive failure pattern Assessment & Plan - Diagnosis (1) Acute exacerbation of CHF (congestive heart failure) Qualifiers: Heart failure type: combined systolic and diastolic Qualified Code(s): I50.43 - Acute on chronic combined systolic (congestive) and diastolic (congestive) heart failure Is this a current diagnosis for this admission?: Yes (2) HTN (hypertension) Qualifiers: Hypertension type: essential hypertension Qualified Code(s): I10 - Essential (primary) hypertension Is this a current diagnosis for this admission?: Yes (4) Seizure disorder Is this a current diagnosis for this admission?: Yes - Notes Notes: Patient with acute on likely chronic combined systolic and diastolic heart failure for cardiac catheterization today to rule out obstructive coronary artery disease. Continue patient on guideline directed heart failure therapy with aspirin, statin, beta-sourav, MATILDA inhibitor and diuretic therapy. Will reevaluate medical therapy after reviewing cardiac cath findings. Patient educated about cardiac cath procedure. - Time Time with patient: 15-25 minutes
[2018-12-09 08:51] LABS: HEMATOCRIT 40.5 % (37.9-51.0); HEMOGLOBIN 13.5 g/dL (13.5-17.0); MEAN CORPUSCULAR HEMOGLOBIN 34.5 pg (27.0-33.4); MEAN CORPUSCULAR HGB CONC 33.3 g/dL (32.0-36.0); MEAN CORPUSCULAR VOLUME 104 fl (80-97); PLATELET COUNT 204 10^3/uL (150-450); RED BLOOD COUNT 3.91 10^6/uL (4.35-5.55); RED CELL DISTRIBUTION WIDTH 13.3 % (11.5-14.0); WHITE BLOOD COUNT 6.7 10^3/uL (4.0-10.5)
[2018-12-09 09:19] LABS: ALANINE AMINOTRANSFERASE 26 U/L (21-72); ALBUMIN 3.7 g/dL (3.5-5.0); ALKALINE PHOSPHATASE 80 U/L (38-126); ANION GAP 9 (5-19); ASPARTATE AMINO TRANSFERASE 14 U/L (17-59); BILIRUBIN,DIRECT 0.3 mg/dL (0.0-0.4); BILIRUBIN,TOTAL 1.2 mg/dL (0.2-1.3); BLOOD UREA NITROGEN 23 mg/dL (7-20); CALCIUM 9.1 mg/dL (8.4-10.2); CARBON DIOXIDE 27 mmol/L (22-30); CHLORIDE 104 mmol/L (98-107); GLUCOSE 110 mg/dL (75-110); PHOSPHORUS 2.9 mg/dL (2.5-4.5); POTASSIUM 4.6 mmol/L (3.6-5.0); SODIUM 139.6 mmol/L (137-145)
--- NOTE | 2018-12-09 10:00 | Operative Report ---
Operative Report DATE OF SURGERY: 12/09/18 PREOPERATIVE DIAGNOSIS: Dilated cardiomyopathy POSTOPERATIVE DIAGNOSIS: Anomalous right coronary artery, dilated cardiomyopathy OPERATION: Left heart catheterization coronary angiography, supravalvular aortography SURGEON: ABEL BEST ANESTHESIA: Moderate Sedation PROCEDURE: After informed consent was obtained the patient was brought to the cardiac catheterization lab and the right wrist was prepared in usual sterile and draped manner. Hemodynamic access was gained using micropuncture technique and the patient was anticoagulated with heparin. An intra-arterial cocktail of verapamil and lidocaine was administered. Selective coronary angiography was performed with a [place] catheter. This was exchanged with pigtail catheter and left ventriculography was performed in standard [place] projection. The patient left the Cardiac Catheterization Lab in stable condition, with intact distal pulses and no chest pain or other complications from the p rocedure. Conscious sedation was initiated, monitored, and maintained during the procedure with the start time of 859 and a completion time of 942 for a total procedure time of 43. A total of 1 milligrams of Versed and 50 milligrams and fentanyl were used for conscious sedation. 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 Mitral regurgitation is not visualized] . CORONARY ANGIOGRAPHY: [The right coronary artery has this slitlike orifice and arises somewhat high and apparently from the left coronary cusp. The right coronary arteries otherwise dominant supplying the PDA and posterolateral branches and it is normal Circumflex coronary artery the circumflex is also normal] LEFT MAIN: [Normal] LEFT ANTERIOR DESCENDING: Normal CIRCUMFLEX CORONARY: Normal RIGHT CORONARY ARTERY: [Normal with anomalous origin] Supravalvular aortography demonstrates mildly dilated aortic root with mild aortic insufficiency Hemodynamic access was gained in the right radial artery however guidewires would not advance right radial angiography demonstrates a loop and an 014 intuition coronary guidewire was used to negotiate this after roadmapping was used and the patient was anticoagulated IMPRESSION: [ 1. Normal left ventricular end-diastolic pressure 2. Dilated globally hypokinetic nonischemic cardiomyopathy 3. Mild aortic insufficiency 4. Mildly dilated aortic root 5. Normal epicardial coronary arteries]
[2018-12-09] MEDS: POTASSIUM CHLORIDE 10 MEQ CAPSULE.ER PO SCH (11:07)
[2018-12-09] MEDS: FAMOTIDINE 20 MG TABLET PO SCH ×2 (11:07→21:51)
[2018-12-09] MEDS: ASPIRIN 81 MG TABLET, CHEWABLE PO SCH (11:08)
[2018-12-09] MEDS: ENOXAPARIN SODIUM INJ 40 MG/0.4 ML DISP.SYRIN SUBCUT SCH (11:08)
[2018-12-09] MEDS: LISINOPRIL 5 MG TABLET PO SCH (11:08)
[2018-12-09] MEDS ORDERED: HALOPERIDOL LACTATE INJ 5 MG/1 ML VIAL IV PRN (14:53)
--- NOTE | 2018-12-09 16:07 | PDOC PROGRESS REPORT ---
Subjective Progress Note for:: 12/09/18 Subjective:: 12/09: Assumed care today. Course and chart reviewed. This is a 72-year-old male with past medical history of hypertension, history of seizure disorder, history of substance abuse including cocaine and methamphetamine who presented with shortness of breath. He was admitted for newly diagnosed congestive heart failure. Echo showed an LVEF of 20%. Cardiology did evaluate the patient. Patient went for cardiac catheterization this morning. Upon encounter this afternoon, patient is not in distress. He says that his shortness of breath is only minimally improved from when he came in. When this provider tried to explain the catheter report and the fact that he has a newly diagnosed CHF, he verbalized "I'm tired of this bullshit. I just need you to give me something so I can lie on bed and ." When this provider further probed, patient verbalized "If you won't do it, I will walk out of this room, get a gun and blow my brains out." Will have psych evaluate patient as he will likely need to be IVCed. Reason For Visit: NEW CHF, LVEF 20%, DYSPNEA Physical Exam Vital Signs: Temp Pulse Resp BP Pulse Ox 97.9 F 102 H 14 127/109 H 96 12/09/18 12:44 12/09/18 12:44 12/09/18 12:44 12/09/18 12:44 12/09/18 12:44 Intake & Output 12/08/18 12/09/18 12/10/18 06:59 06:59 06:59 Intake Total 740 Output Total 800 400 200 Balance -60 -400 -200 Weight 139 lb 1.787 oz 135 lb 9.349 oz General appearance: PRESENT: other - Slightly appears agitated Head exam: PRESENT: atraumatic, normocephalic Eye exam: PRESENT: conjunctiva pink, EOMI, PERRLA. ABSENT: scleral icterus Ear exam: PRESENT: normal external ear exam Mouth exam: PRESENT: moist, tongue midline Neck exam: ABSENT: carotid bruit, JVD, lymphadenopathy, thyromegaly Respiratory exam: PRESENT: clear to auscultation lin. ABSENT: rales, rhonchi, wheezes Cardiovascular exam: PRESENT: RRR. ABSENT: rubs Pulses: PRESENT: normal dorsalis pedis pul GI/Abdominal exam: PRESENT: normal bowel sounds, soft. ABSENT: distended, guarding, mass, organolmegaly, rebound, tenderness Rectal exam: PRESENT: deferred Neurological exam: PRESENT: alert, awake, oriented to person, oriented to place, oriented to time, oriented to situation, CN II-XII grossly intact. ABSENT: motor sensory deficit Psychiatric exam: PRESENT: agitated, suicidal ideation Results Laboratory Results: 12/09/18 08:27 12/09/18 08:27 12/09/18 12/09/18 08:27 08:27 WBC 6.7 RBC 3.91 L Hgb 13.5 Hct 40.5 MCV 104 H MCH 34.5 H MCHC 33.3 RDW 13.3 Plt Count 204 Sodium 139.6 Potassium 4.6 Chloride 104 Carbon Dioxide 27 Anion Gap 9 BUN 23 H Creatinine 1.13 Est GFR ( Amer) > 60 Est GFR (Non-Af Amer) > 60 Glucose 110 Calcium 9.1 Phosphorus 2.9 Magnesium 2.0 Total Bilirubin 1.2 AST 14 L ALT 26 Alkaline Phosphatase 80 Total Protein 6.0 L Albumin 3.7 12/06/18 12/06/18 12/06/18 10:26 10:26 15:53 CK-MB (CK-2) 1.49 Troponin I 0.023 0.025 NT-Pro-B Natriuret Pep 9550 H 12/06/18 12/07/18 12/07/18 21:50 05:03 05:03 CK-MB (CK-2) 1.19 Troponin I 0.030 0.032 NT-Pro-B Natriuret Pep 9970 H 12/07/18 12/07/18 12/08/18 11:10 17:44 10:13 CK-MB (CK-2) Troponin I 0.019 0.024 NT-Pro-B Natriuret Pep 96505 H 12/09/18 08:27 CK-MB (CK-2) Troponin I NT-Pro-B Natriuret Pep 7660 H Impressions: Chest X-Ray 12/06/18 10:09 IMPRESSION: Fluid overload or congestive failure pattern with pulmonary vasc ular congestion, interstitial edema and trace pleural effusions. Chest CT 12/06/18 14:19 IMPRESSION: Fluid overload or congestive failure pattern Assessment and Plan - Diagnosis (1) Acute exacerbation of CHF (congestive heart failure) Qualifiers: Heart failure type: combined systolic and diastolic Qualified Code(s): I50.43 - Acute on chronic combined systolic (congestive) and diastolic (congestive) heart failure Is this a current diagnosis for this admission?: Yes Plan: As mentioned echo showed an EF of 20%. Cardiac cath done this morning which did not show any significant obstructive CAD. Patient likely has nonischemic cardiomyopathy. He does admit to a previous chronic use of alcohol, cocaine and methamphetamine in the past. Discussed with cardiology. Will switch IV Lasix to p.o. today. Continue beta- blockers and MATILDA inhibitor. (2) Congestive heart failure Qualifiers: Heart failure type: unspecified Heart failure chronicity: acute Qualified Code(s): I50.9 - Heart failure, unspecified Is this a current diagnosis for this admission?: Yes Plan: Nonischemic cardiomyopathy. As per #1. (3) Suicidal ideation Is this a current diagnosis for this admission?: Yes Plan: Will consult psych. (4) HTN (hypertension) Qualifiers: Hypertension type: essential hypertension Qualified Code(s): I10 - Essential (primary) hypertension Is this a current diagnosis for this admission?: Yes Plan: Continue lisinopril and metoprolol. - Time Time Spent with patient: 25-34 minutes
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
--- NOTE | 2018-12-09 19:08 | ADVANCED CARE ---
- Diagnosis (1) Acute exacerbation of CHF (congestive heart failure) Diagnosis Current: Yes (2) Congestive heart failure Diagnosis Current: Yes (3) Suicidal ideation Diagnosis Current: Yes (4) HTN (hypertension) Diagnosis Current: Yes Resuscitation Status: Full Code Discussion: Patient was evaluated by psychiatry. He did come down and apparently patient does have chronic issues where he goes into outburst and say that he wants to . I also reassess patient after psych evaluation and he is apologetic and said that he did not mean what he said. Patient's close friend/community arts centre manager, Yeimy Morales says that he does have a known history of feeling he wants to but did not really have an actual suicidal attempt in the past. We discussed CODE STATUS with patient. He says that he is a full code and prefers chest compressions, defibrillation and mechanical ventilation if the need arises. He says that although he is remarried to his ex- who is now in [place], he wants Yeimy and his daugher to be the surrogate medical decision makers rather than his current .
[2018-12-09] MEDS: METOPROLOL SUCCINATE 25 MG TAB.SR.24H PO SCH (21:51)
[2018-12-09] MEDS: ACETAMINOPHEN 325 MG TABLET PO PRN (21:52)
[2018-12-10] MEDS: FAMOTIDINE 20 MG TABLET PO SCH ×2 (10:00→22:36)
[2018-12-10] MEDS: FUROSEMIDE 40 MG TABLET PO SCH (10:00)
[2018-12-10] MEDS: ENOXAPARIN SODIUM INJ 40 MG/0.4 ML DISP.SYRIN SUBCUT SCH (10:00)
[2018-12-10] MEDS: POTASSIUM CHLORIDE 10 MEQ CAPSULE.ER PO SCH (10:00)
[2018-12-10] MEDS: ASPIRIN 81 MG TABLET, CHEWABLE PO SCH (10:00)
[2018-12-10] MEDS: LISINOPRIL 5 MG TABLET PO SCH (10:00)
[2018-12-10] MEDS: METOPROLOL SUCCINATE 25 MG TAB.SR.24H PO SCH ×2 (10:00→22:36)
[2018-12-10] MEDS: LEVALBUTEROL HCL NEB 1.25 MG/3 ML AMPUL NEB PRN ×2 (10:38→17:51)
--- NOTE | 2018-12-10 14:53 | PDOC PROGRESS REPORT ---
Subjective Progress Note for:: 12/10/18 Subjective:: 12/09: Assumed care today. Course and chart reviewed. This is a 72-year-old male with past medical history of hypertension, history of seizure disorder, history of substance abuse including cocaine and methamphetamine who presented with shortness of breath. He was admitted for newly diagnosed congestive heart failure. Echo showed an LVEF of 20%. Cardiology did evaluate the patient. Patient went for cardiac catheterization this morning. Upon encounter this afternoon, patient is not in distress. He says that his shortness of breath is only minimally improved from when he came in. When this provider tried to explain the catheter report and the fact that he has a newly diagnosed CHF, he verbalized "I'm tired of this bullshit. I just need you to give me something so I can lie on bed and ." When this provider further probed, patient verbalized "If you won't do it, I will walk out of this room, get a gun and blow my brains out." Will have psych evaluate patient as he will likely need to be IVCed. 12/10: No acute event overnight. As mentioned (see ACP note), patient was reevaluated by psych. IVC was not pursued as patient does have a known history of going into outburst and expressing suicidal ideations but never had actual intent or attempt. As mentioned upon assessment, patient was very apologetic and says he does have this freqent outburst of saying he wants to blow his brains out but does not really mean it. He appears very pleasant today and is comfortable. He says that his shortness of breath has improved. He is orthopnea is also improved. He denies chest pain. Rediscussed with cardiology who does recommend discharging patient on a LifeVest. We will work on getting patient a LifeVest. Reason For Visit: NEW CHF, LVEF 20%, DYSPNEA Physical Exam Vital Signs: Temp Pulse Resp BP Pulse Ox 98.2 F 103 H 18 124/62 95 12/10/18 03:39 12/10/18 10:39 12/10/18 10:39 12/10/18 03:39 12/10/18 10:39 Intake & Output 12/09/18 12/10/18 12/11/18 06:59 06:59 06:59 Intake Total 680 Output Total 400 600 Balance -400 80 Weight 135 lb 9.349 oz 135 lb 9.349 oz General appearance: PRESENT: no acute distress, well-developed, well-nourished Head exam: PRESENT: atraumatic, normocephalic Eye exam: PRESENT: conjunctiva pink, EOMI, PERRLA. ABSENT: scleral icterus Ear exam: PRESENT: normal external ear exam Mouth exam: PRESENT: moist, tongue midline Neck exam: ABSENT: carotid bruit, JVD, lymphadenopathy, thyromegaly Respiratory exam: PRESENT: clear to auscultation lin. ABSENT: rales, rhonchi, wheezes Cardiovascular exam: PRESENT: RRR. ABSENT: rubs Pulses: PRESENT: normal dorsalis pedis pul GI/Abdominal exam: PRESENT: normal bowel sounds, soft. ABSENT: distended, guarding, mass, organolmegaly, rebound, tenderness Rectal exam: PRESENT: deferred Extremities exam: PRESENT: full ROM. ABSENT: calf tenderness, clubbing, pedal edema Neurological exam: PRESENT: alert, awake, oriented to person, oriented to place, oriented to time, oriented to situation, CN II-XII grossly intact. ABSENT: motor sensory deficit Results Laboratory Results: 12/09/18 08:27 12/09/18 08:27 12/06/18 12/06/18 12/06/18 10:26 10:26 15:53 CK-MB (CK-2) 1.49 Troponin I 0.023 0.025 NT-Pro-B Natriuret Pep 9550 H 12/06/18 12/07/18 12/07/18 21:50 05:03 05:03 CK-MB (CK-2) 1.19 Troponin I 0.030 0.032 NT-Pro-B Natriuret Pep 9970 H 12/07/18 12/07/18 12/08/18 11:10 17:44 10:13 CK-MB (CK-2) Troponin I 0.019 0.024 NT-Pro-B Natriuret Pep 68709 H 12/09/18 08:27 CK-MB (CK-2) Troponin I NT-Pro-B Natriuret Pep 7660 H Impressions: Chest X-Ray 12/06/18 10:09 IMPRESSION: Fluid overload or congestive failure pattern with pulmonary vascular congestion, interstitial edema and trace pleural effusions. Chest CT 12/06/18 14:19 IMPRESSION: Fluid overload or congestive failure pattern Assessment and Plan - Diagnosis (1) Acute exacerbation of CHF (congestive heart failure) Qualifiers: Heart failure type: combined systolic and diastolic Qualified Code(s): I50.43 - Acute on chronic combined systolic (congestive) and diastolic (congestive) heart failure Is this a current diagnosis for this admission?: Yes Plan: 12/09: As mentioned echo showed an EF of 20%. Cardiac cath done this morning which did not show any significant obstructive CAD. Patient likely has nonischemic cardiomyopathy. He does admit to a previous chronic use of alcohol, cocaine and methamphetamine in the past. Discussed with cardiology. Will switch IV Lasix to p.o. today. Continue beta-blockers and MATILDA inhibitor. 12/10: Rediscussed with cardiology who does recommend discharging patient on a LifeVest. We will work on getting patient a LifeVest. (2) Congestive heart failure Qualifiers: Heart failure type: unspecified Heart failure chronicity: acute Qualified Code(s): I50.9 - Heart failure, unspecified Is this a current diagnosis for this admission?: Yes Plan: Nonischemic cardiomyopathy. As per #1. (3) Suicidal ideation Is this a current diagnosis for this admission?: Yes Plan: Resolved. Appreciate psych recommendation. See above note for details. (4) HTN (hypertension) Qualifiers: Hypertension type: essential hypertension Qualified Code(s): I10 - Essential (primary) hypertension Is this a current diagnosis for this admission?: Yes Plan: Blood pressures are better. Continue lisinopril and metoprolol. - Time Time Spent with patient: 25-34 minutes
[2018-12-11] MEDS: POTASSIUM CHLORIDE 10 MEQ CAPSULE.ER PO SCH (09:32)
[2018-12-11] MEDS: ASPIRIN 81 MG TABLET, CHEWABLE PO SCH (09:32)
[2018-12-11] MEDS: LISINOPRIL 5 MG TABLET PO SCH (09:33)
[2018-12-11] MEDS: FUROSEMIDE 40 MG TABLET PO SCH (09:33)
[2018-12-11] MEDS: ENOXAPARIN SODIUM INJ 40 MG/0.4 ML DISP.SYRIN SUBCUT SCH (09:33)
[2018-12-11] MEDS: METOPROLOL SUCCINATE 25 MG TAB.SR.24H PO SCH ×2 (09:33→21:33)
[2018-12-11] MEDS: FAMOTIDINE 20 MG TABLET PO SCH ×2 (09:33→21:33)
[2018-12-11] MEDS: LEVALBUTEROL HCL NEB 1.25 MG/3 ML AMPUL NEB PRN (11:02)
[2018-12-12] MEDS: POTASSIUM CHLORIDE 10 MEQ CAPSULE.ER PO SCH (10:00)
[2018-12-12] MEDS: ASPIRIN 81 MG TABLET, CHEWABLE PO SCH (10:01)
[2018-12-12] MEDS: LISINOPRIL 5 MG TABLET PO SCH (10:01)
[2018-12-12] MEDS: FAMOTIDINE 20 MG TABLET PO SCH (10:01)
[2018-12-12] MEDS: METOPROLOL SUCCINATE 25 MG TAB.SR.24H PO SCH (10:01)
[2018-12-12] MEDS: ENOXAPARIN SODIUM INJ 40 MG/0.4 ML DISP.SYRIN SUBCUT SCH (10:01)
[2018-12-12] MEDS: FUROSEMIDE 40 MG TABLET PO SCH (10:01)
[2018-12-12 11:48] VITALS: BP 137/95
--- NOTE | 2018-12-12 12:13 | PDOC PROGRESS REPORT ---
Subjective Progress Note for:: 12/11/18 Subjective:: 12/09: Assumed care today. Course and chart reviewed. This is a 72-year-old male with past medical history of hypertension, history of seizure disorder, history of substance abuse including cocaine and methamphetamine who presented with shortness of breath. He was admitted for newly diagnosed congestive heart failure. Echo showed an LVEF of 20%. Cardiology did evaluate the patient. Patient went for cardiac catheterization this morning. Upon encounter this afternoon, patient is not in distress. He says that his shortness of breath is only minimally improved from when he came in. When this provider tried to explain the catheter report and the fact that he has a newly diagnosed CHF, he verbalized "I'm tired of this bullshit. I just need you to give me something so I can lie on bed and ." When this provider further probed, patient verbalized "If you won't do it, I will walk out of this room, get a gun and blow my brains out." Will have psych evaluate patient as he will likely need to be IVCed. 12/10: No acute event overnight. As mentioned (see ACP note), patient was reevaluated by psych. IVC was not pursued as patient does have a known history of going into outburst and expressing suicidal ideations but never had actual intent or attempt. As mentioned upon assessment, patient was very apologetic and says he does have this freqent outburst of saying he wants to blow his brains out but does not really mean it. He appears very pleasant today and is comfortable. He says that his shortness of breath has improved. He is orthopnea is also improved. He denies chest pain. Rediscussed with cardiology who does recommend discharging patient on a LifeVest. We will work on getting patient a LifeVest. 12/11: No acute issues. He continues to do well and is just awaiting acquisition of Lifevest. Reason For Visit: NEW CHF, LVEF 20%, DYSPNEA Physical Exam Vital Signs: Temp Pulse Resp BP Pulse Ox 97.8 F 97 19 137/95 H 100 12/12/18 11:34 12/12/18 11:34 12/12/18 11:34 12/12/18 11:34 12/12/18 11:34 Intake & Output 12/11/18 12/12/18 12/13/18 06:59 06:59 06:59 Intake Total 1160 1130 Output Total 450 1350 Balance 710 -220 Weight 135 lb 9.349 oz 135 lb 12.876 oz General appearance: PRESENT: no acute distress, well-developed, well-nourished Head exam: PRESENT: atraumatic, normocephalic Eye exam: PRESENT: conjunctiva pink, EOMI, PERRLA. ABSENT: scleral icterus Ear exam: PRESENT: normal external ear exam Mouth exam: PRESENT: moist, tongue midline Neck exam: ABSENT: carotid bruit, JVD, lymphadenopathy, thyromegaly Respiratory exam: PRESENT: clear to auscultation lin. ABSENT: rales, rhonchi, wheezes Cardiovascular exam: PRESENT: RRR. ABSENT: rubs Pulses: PRESENT: normal dorsalis pedis pul GI/Abdominal exam: PRESENT: normal bowel sounds, soft. ABSENT: distended, guarding, mass, organolmegaly, rebound, tenderness Rectal exam: PRESENT: deferred Extremities exam: PRESENT: full ROM. ABSENT: calf tenderness, clubbing, pedal edema Neurological exam: PRESENT: alert, awake, oriented to person, oriented to place, oriented to time, oriented to situation, CN II-XII grossly intact. ABSENT: motor sensory deficit Results Laboratory Results: 12/09/18 08:27 12/09/18 08:27 12/06/18 12/06/18 12/06/18 10:26 10:26 15:53 CK-MB (CK-2) 1.49 Troponin I 0.023 0.025 NT-Pro-B Natriuret Pep 9550 H 12/06/18 12/07/18 12/07/18 21:50 05:03 05:03 CK-MB (CK-2) 1.19 Troponin I 0.030 0.032 NT-Pro-B Natriuret Pep 9970 H 12/07/18 12/07/18 12/08/18 11:10 17:44 10:13 CK-MB (CK-2) Troponin I 0.019 0.024 NT-Pro-B Natriuret Pep 07844 H 12/09/18 08:27 CK-MB (CK-2) Troponin I NT-Pro-B Natriuret Pep 7660 H Impressions: Chest X-Ray 12/06/18 10:09 IMPRESSION: Fluid overload or congestive failure pattern with pulmonary vascular congestion, interstitial edema and trace pleural effusions. Chest CT 12/06/18 14:19 IMPRESSION: Fluid overload or congestive failure pattern Assessment and Plan - Diagnosis (1) Acute exacerbation of CHF (congestive heart failure) Qualifiers: Heart failure type: combined systolic and diastolic Qualified Code(s): I50.43 - Acute on chronic combined systolic (congestive) and diastolic (congestive) heart failure Is this a current diagnosis for this admission?: Yes Plan: 12/09: As mentioned echo showed an EF of 20%. Cardiac cath done this morning which did not show any significant obstructive CAD. Patient likely has nonischemic cardiomyopathy. He does admit to a previous chronic use of alcohol, cocaine and methamphetamine in the past. Discussed with cardiology. Will switch IV Lasix to p.o. today. Continue beta-blockers and MATILDA inhibitor. 12/10: Rediscussed with cardiology who does recommend discharging patient on a LifeVest. We will work on getting patient a LifeVest. 12/11: Awaiting acquisition of Lifevest. (2) Congestive heart failure Qualifiers: Heart failure type: unspecified Heart failure chronicity: acute Qualified Code(s): I50.9 - Heart failure, unspecified Is this a current diagnosis for this admission?: Yes Plan: Nonischemic cardiomyopathy. As per #1. (3) Suicidal ideation Is this a current diagnosis for this admission?: Yes Plan: Resolved. Appreciate psych recommendation. See above note for details. (4) HTN (hypertension) Qualifiers: Hypertension type: essential hypertension Qualified Code(s): I10 - Essential (primary) hypertension Is this a current diagnosis for this admission?: Yes Plan: Blood pressures are better. Continue lisinopril and metoprolol. - Time Time Spent with patient: 15-24 minutes
--- NOTE | 2018-12-12 17:15 | PDOC DISCHARGE SUMMARY ---
General - Admit/Disc Date/PCP Admission Date/Primary Care Provider: 12/06/18 13:35 Discharge Date: 12/12/18 - Discharge Diagnosis (1) Acute exacerbation of CHF (congestive heart failure) Is this a current diagnosis for this admission?: Yes (2) Congestive heart failure Is this a current diagnosis for this admission?: Yes (3) Suicidal ideation Is this a current diagnosis for this admission?: Yes (4) HTN (hypertension) Is this a current diagnosis for this admission?: Yes - Additional Information Resuscitation Status: Full Code Discharge Diet: Cardiac Discharge Activity: Activity As Tolerated, Balance Activity w/Rest, Weigh Daily Prescriptions: Furosemide [Lasix 20 mg Tablet] 20 mg PO Q12 #60 tablet Lisinopril [Prinivil 5 mg Tablet] 5 mg PO DAILY 1 Days #30 tablet Metoprolol Succinate [Toprol Xl] 50 mg PO Q12 #60 tab.er.24h Home Medications: Furosemide [Lasix 20 mg Tablet] 20 mg PO Q12 #60 tablet 12/11/18 Lisinopril [Prinivil 5 mg Tablet] 5 mg PO DAILY 1 Days #30 tablet 12/11/18 Metoprolol Succinate [Toprol Xl] 50 mg PO Q12 #60 tab.er.24h 12/11/18 History of Present Illness History of Present Illness: Admitting hospitalist's H&P: SUSY CONNOLLY is a 72 year old male with a PMH of HTN, seizures, former convict (release December 2017). He presents to [facility] with a one-week history of shortness of breath and dyspnea on exertion. Patient states that he was visiting his son last week in [place] when he began feeling short of breath. He states that the symptoms progressively became worse. He endorses a dry cough. Last night the patient was coughing most of the night and unable to sleep, this prompted him to come to the emergency department this morning. Upon presentation to the ED, vital signs were relatively stable, mildly hypertensive SBP 149/101. EKG shows sinus tachycardia with inverted T waves in leads I, II, III, aVF, V3-V6. CXR shows congestive heart failure pattern with pulmonary vascular congestion, interstitial edema and trace pleural effusions. CT chest shows interstitial pulmonary edema, bilateral effusions L>R, minimal bibasilar atelectasis. Patient treated with nebulizer x1 and 20 mg IV Lasix. Hospital Course Hospital Course: This is a 72-year-old male with past medical history of hypertension, history of seizure disorder, history of substance abuse including cocaine and methamphetamine who presented with shortness of breath. He was admitted for newly diagnosed congestive heart failure. Echo showed an LVEF of 20%. Cardiology did evaluate the patient. Patient went for cardiac catheterization. He was found to have nonischemic cardiomyopathy. He did admit to chronic previous history of alcoholism, cocaine and methamphetamines use. He was started on ACEi, beta sourav and diuretics. He did significantly improved. He did not qualify for home O2 and ambulated on the hallway with no desaturation. He was discharged on a Lifevest. He says he is flying to [place] next week to move there. Physical Exam Vital Signs: Temp Pulse Resp BP Pulse Ox 97.8 F 96 18 137/95 H 100 12/12/18 11:34 12/12/18 13:03 12/12/18 13:03 12/12/18 11:34 12/12/18 11:34 Intake & Output 12/11/18 12/12/18 12/13/18 06:59 06:59 06:59 Intake Total 1160 1130 450 Output Total 450 1350 300 Balance 710 -220 150 Weight 135 lb 9.349 oz 135 lb 12.876 oz General appearance: PRESENT: no acute distress, well-developed, well-nourished Head exam: PRESENT: atraumatic, normocephalic Eye exam: PRESENT: conjunctiva pink, EOMI, PERRLA. ABSENT: scleral icterus Ear exam: PRESENT: normal external ear exam Mouth exam: PRESENT: moist, tongue midline Neck exam: ABSENT: carotid bruit, JVD, lymphadenopathy, thyromegaly Respiratory exam: PRESENT: clear to auscultation lin. ABSENT: rales, rhonchi, wheezes Cardiovascular exam: PRESENT: RRR. ABSENT: diastolic murmur, rubs Pulses: PRESENT: normal dorsalis pedis pul GI/Abdominal exam: PRESENT: normal bowel sounds, soft. ABSENT: distended, guarding, mass, organolmegaly, rebound, tenderness Rectal exam: PRESENT: deferred Neurological exam: PRESENT: alert, awake, oriented to person, oriented to place, oriented to time, oriented to situation, CN II-XII grossly intact. ABSENT: motor sensory deficit Results Laboratory Results: 12/09/18 08:27 12/09/18 08:27 12/06/18 12/06/18 12/06/18 10:26 10:26 15:53 CK-MB (CK-2) 1.49 Troponin I 0.023 0.025 NT-Pro-B Natriuret Pep 9550 H 12/06/18 12/07/18 12/07/18 21:50 05:03 05:03 CK-MB (CK-2) 1.19 Troponin I 0.030 0.032 NT-Pro-B Natriuret Pep 9970 H 12/07/18 12/07/18 12/08/18 11:10 17:44 10:13 CK-MB (CK-2) Troponin I 0.019 0.024 NT-Pro-B Natriuret Pep 78224 H 12/09/18 08:27 CK-MB (CK-2) Troponin I NT-Pro-B Natriuret Pep 7660 H Impressions: Chest X-Ray 12/06/18 10:09 IMPRESSION: Fluid overload or congestive failure pattern with pulmonary vascular congestion, interstitial edema and trace pleural effusions. Chest CT 12/06/18 14:19 IMPRESSION: Fluid overload or congestive failure pattern Qualifiers - * PATIENT BEING DISCHARGED WITH ANY OF THE FOLLOWING DIAGNOSIS: No Acute Heart Failure - Is this a Heart Failure Patient?: Yes Documentation of LVEF assessment?: Yes LVEF < 40%?: No- if no continue to question #3 a) Discharged on ACEI?: Yes d) Discharged on evidence-based Beta sourav(carvedilol, sustained release metoprolol succinate, or bisoprolol)?: Yes Reason(s) not discharged on Aldosterone antagonist for LVEF < 35%: Other 3. Anticoagulant therapy for permanect/persistent/paraoxysmal Afib or Aflutter: N/A
== END 2018-12-12 14:09 | disposition home or self-care (01) | DRG 287 ==
LOC: ER 09:40 → EH 13:35 → UNDOADMIN 13:35 → 5 17:12
PROVIDERS: ADMIT Family Medicine; ATTEND Family Medicine
PROC: B201YZZ Plain Radiography of Multiple Coronary Arteries using Other Contrast (ICD-10-PCS; principal; 2018-12-09)
PROC: B300YZZ Plain Radiography of Thoracic Aorta using Other Contrast (ICD-10-PCS; 2018-12-09)
PROC: B205YZZ Plain Radiography of Left Heart using Other Contrast (ICD-10-PCS; 2018-12-09)
PROC: 4A023N7 Measurement of Cardiac Sampling and Pressure, Left Heart, Percutaneous Approach (ICD-10-PCS; 2018-12-09)
DX: I11.0 Hypertensive heart disease with heart failure (principal); Q24.5 Malformation of coronary vessels; R45.851 Suicidal ideations; I50.43 Acute on chronic combined systolic (congestive) and diastolic (congestive) heart failure; I42.0 Dilated cardiomyopathy; G40.909 Epilepsy, unspecified, not intractable, without status epilepticus; I69.323 Fluency disorder following cerebral infarction; F17.210 Nicotine dependence, cigarettes, uncomplicated
CPT/HCPCS: 36415; 71046; 71250; 80053; 80061; 81001; 82553; 83036; 83735; 83880; 84100; 84443; 84484; 85025; 85027; 93005; 93010; 93306; 93458; 94640; 99291; J0360; J1200; J1644; J1650; J1940; J2250; J3010; J3475; J3490; J7620

== ENCOUNTER → 2019-01-07 | Outpatient (CLI) | payer MEDICARE ==
[2019-01-07 11:04] LABS: ABSOLUTE EOSINOPHILS # (AUTO) 0.1 10^3/uL (0.0-0.6); ABSOLUTE LYMPHOCYTES (AUTO) 2.2 10^3/uL (0.5-4.7); ABSOLUTE MONOCYTES (AUTO) 0.5 10^3/uL (0.1-1.4); ABSOLUTE NEUT (AUTO) 2.8 10^3/uL (1.7-8.2); BASOPHILS % (AUTO) 0.8 % (0-2); EOSINOPHILS % (AUTO) 2.5 % (0-6); HEMATOCRIT 37.2 % (37.9-51.0); HEMOGLOBIN 12.4 g/dL (13.5-17.0); LYMPHOCYTES % (AUTO) 38.8 % (13-45); MEAN CORPUSCULAR HEMOGLOBIN 34.6 pg (27.0-33.4); MEAN CORPUSCULAR HGB CONC 33.3 g/dL (32.0-36.0); MEAN CORPUSCULAR VOLUME 104 fl (80-97); MONOCYTES % (AUTO) 9.1 % (3-13); PLATELET COUNT 192 10^3/uL (150-450); RED BLOOD COUNT 3.58 10^6/uL (4.35-5.55); SEGMENTED NEUTROPHILS % (AUTO) 48.8 % (42-78); TOTAL CELLS COUNTED % (AUTO) 100 %; WHITE BLOOD COUNT 5.7 10^3/uL (4.0-10.5)
[2019-01-07 11:21] LABS: ALANINE AMINOTRANSFERASE 15 U/L (21-72); ALBUMIN 3.8 g/dL (3.5-5.0); ALKALINE PHOSPHATASE 69 U/L (38-126); ANION GAP 6 (5-19); ASPARTATE AMINO TRANSFERASE 16 U/L (17-59); BILIRUBIN,DIRECT 0.1 mg/dL (0.0-0.4); BILIRUBIN,TOTAL 1.2 mg/dL (0.2-1.3); BLOOD UREA NITROGEN 25 mg/dL (7-20); CARBON DIOXIDE 30 mmol/L (22-30); CHLORIDE 106 mmol/L (98-107); CHOLESTEROL 190.29 mg/dL (0-200); GLUCOSE 86 mg/dL (75-110); POTASSIUM 3.8 mmol/L (3.6-5.0); SODIUM 141.7 mmol/L (137-145); TOTAL PROTEIN 6.6 g/dL (6.3-8.2); TRIGLYCERIDES 112 mg/dL (<150)
[2019-01-07 11:32] LABS: DIRECT LDL 87 mg/dL (<100)
== END ==
LOC: OD 10:32
PROVIDERS: ATTEND Family Medicine Geriatric Medicine
DX: E83.42 Hypomagnesemia (principal); I50.9 Heart failure, unspecified; Z79.899 Other long term (current) drug therapy
CPT/HCPCS: 36415; 80053; 80061; 83735; 84443; 85025

== ENCOUNTER → 2019-01-28 | Outpatient (CLI) | payer MEDICARE ==
[2019-01-28 12:56] LABS: ABSOLUTE EOSINOPHILS # (AUTO) 0.2 10^3/uL (0.0-0.6); ABSOLUTE MONOCYTES (AUTO) 0.4 10^3/uL (0.1-1.4); ABSOLUTE NEUT (AUTO) 1.6 10^3/uL (1.7-8.2); BASOPHILS % (AUTO) 0.8 % (0-2); EOSINOPHILS % (AUTO) 4.8 % (0-6); HEMATOCRIT 42.2 % (37.9-51.0); LYMPHOCYTES % (AUTO) 46.9 % (13-45); MEAN CORPUSCULAR HEMOGLOBIN 34.6 pg (27.0-33.4); MEAN CORPUSCULAR HGB CONC 33.2 g/dL (32.0-36.0); MEAN CORPUSCULAR VOLUME 104 fl (80-97); MONOCYTES % (AUTO) 9.9 % (3-13); RED BLOOD COUNT 4.05 10^6/uL (4.35-5.55); RED CELL DISTRIBUTION WIDTH 12.9 % (11.5-14.0); SEGMENTED NEUTROPHILS % (AUTO) 37.6 % (42-78); TOTAL CELLS COUNTED % (AUTO) 100 %; WHITE BLOOD COUNT 4.2 10^3/uL (4.0-10.5)
[2019-01-28 13:19] LABS: ASPARTATE AMINO TRANSFERASE 15 U/L (17-59); IRON(TIBC) 129.5 ug/dL (49-181); PLATELET COUNT 182 10^3/uL (150-450)
[2019-01-29 15:36] LABS: HGB A2 2.7 % (1.8-3.2); HGB SOLUBILITY RESULT Negative (Negative)
== END ==
LOC: OD 11:41
PROVIDERS: ATTEND Family Medicine Geriatric Medicine
DX: D64.9 Anemia, unspecified (principal); I50.22 Chronic systolic (congestive) heart failure; D75.89 Other specified diseases of blood and blood-forming organs; Z79.899 Other long term (current) drug therapy
CPT/HCPCS: 36415; 82607; 82728; 82746; 83020; 83540; 83550; 84450; 84460; 84466; 85025

== ENCOUNTER → 2019-05-11 | Outpatient (CLI) | payer MEDICARE ==
--- NOTE | 2019-05-11 13:45 | RADIOLOGY REPORT (SQ) ---
EXAM DESCRIPTION: CHEST PA/LATERAL COMPLETED DATE/TIME: 05/11/2019 12:38 pm REASON FOR STUDY: COUGH COMPARISON: Two-view chest 12/06/2018, 11/13/2015 CT chest 12/06/2018 EXAM PARAMETERS: NUMBER OF VIEWS: two views TECHNIQUE: Digital Frontal and Lateral radiographic views of the chest acquired. RADIATION DOSE: NA LIMITATIONS: none FINDINGS: LUNGS AND PLEURA: Lungs are hyperinflated with flattening in the hemidiaphragms from obstr uctive disease. There is minimal left retrocardiac bandlike atelectasis. No fluffy alveolar infiltrates worrisome fo r pulmonary edema or pneumonia. No gross pleural effusions. No pneumothorax. MEDIASTINUM AND HILAR STRUCTURES: No masses or contour abnormalities. HEART AND VASCULAR STRUCTURES: Heart normal size. No evidence for failure. BONES: No acute findings. HARDWARE: None in the chest. OTHER: No other significant finding. IMPRESSION: Hyperinflation from obstructive disease. Minimal left retrocardiac bandlike atelectasis . TECHNICAL DOCUMENTATION: JOB ID: [id number] [employer]- All Rights Reserved Reading location - IP/workstation name: [email or web address]
== END ==
LOC: OD 10:39
PROVIDERS: ATTEND Family Medicine Geriatric Medicine
DX: R05 Cough (principal)
CPT/HCPCS: 71046

== ENCOUNTER 2019-06-03 11:12 | Day surgery (SDC) | payer MEDICARE, OTHER ==
[~2019-06-03 11:12] MED LIST: BESIFLOXACIN HCL 0.6% OPH SUSP 5 ML BOTTLE OD PRN; CHONDR SU A NA/HYALUR INTRAOC KIT (SURGICARE) ONE; CYCLOPENTOLATE 0.2%/PHENYLEPHRINE 1% OPH SOLN 2 ML OD PRN; DORZOLAMIDE HCL 2%/TIMOLOL MALEAT 0.5% OPH SOLN 10 ML OD PRN; EPINEPHRINE INJ/PF 1 MG/1 ML AMPULE ONE; KETOROLAC TROMETHAMINE 0.45% 4 DROP/0.4 ML DROPERETTE OD PRN; LIDOCAINE 1% INJ-PF (10 MG/ML) 30 ML SDV ONE; TETRACAINE HCL 0.5% OPH SOLN 4 ML OD PRN; TOBRAMYCIN SULFATE/DEXAMETH OPH OINTMENT 3.5 GM ONE; TROPICAMIDE 1% OPH SOLN 15 ML OD PRN
[2019-06-03] MEDS ORDERED: FENTANYL CITRATE INJ/PF 100 MCG/2 ML AMPUL ONE (12:21)
[2019-06-03] MEDS ORDERED: MIDAZOLAM 2 MG/2 ML INJ ONE (12:21)
[2019-06-03] MEDS ORDERED: ONDANSETRON HCL INJ/PF 4 MG/2 ML SDV ONE (12:21)
== END 2019-06-03 12:58 | disposition home or self-care (01) ==
LOC: SC 11:12
PROVIDERS: ATTEND Ophthalmology
DX: H25.11 Age-related nuclear cataract, right eye (principal); Z53.9 Procedure and treatment not carried out, unspecified reason
CPT/HCPCS: J0171; J2250; J2405; J3010; J3490

== ENCOUNTER → 2019-07-06 | Outpatient (CLI) | payer MEDICARE, OTHER ==
[2019-07-06 13:37] LABS: ABSOLUTE EOSINOPHILS # (AUTO) 0.1 10^3/uL (0.0-0.6); ABSOLUTE LYMPHOCYTES (AUTO) 1.3 10^3/uL (0.5-4.7); ABSOLUTE MONOCYTES (AUTO) 0.3 10^3/uL (0.1-1.4); ABSOLUTE NEUT (AUTO) 1.5 10^3/uL (1.7-8.2); EOSINOPHILS % (AUTO) 2.2 % (0-6); HEMATOCRIT 37.6 % (37.9-51.0); HEMOGLOBIN 12.6 g/dL (13.5-17.0); LYMPHOCYTES % (AUTO) 40.8 % (13-45); MEAN CORPUSCULAR HEMOGLOBIN 35.7 pg (27.0-33.4); MEAN CORPUSCULAR HGB CONC 33.6 g/dL (32.0-36.0); MEAN CORPUSCULAR VOLUME 106 fl (80-97); MONOCYTES % (AUTO) 8.9 % (3-13); PLATELET COUNT 187 10^3/uL (150-450); RED BLOOD COUNT 3.54 10^6/uL (4.35-5.55); SEGMENTED NEUTROPHILS % (AUTO) 47.1 % (42-78); TOTAL CELLS COUNTED % (AUTO) 100 %; WHITE BLOOD COUNT 3.3 10^3/uL (4.0-10.5)
[2019-07-06 13:57] LABS: ANION GAP 10 (5-19); BLOOD UREA NITROGEN 25 mg/dL (7-20); CALCIUM 9.3 mg/dL (8.4-10.2); CARBON DIOXIDE 23 mmol/L (22-30); CHLORIDE 107 mmol/L (98-107); GLUCOSE 122 mg/dL (75-110); POTASSIUM 4.5 mmol/L (3.6-5.0)
== END ==
LOC: OD 12:23
PROVIDERS: ATTEND Family Medicine Geriatric Medicine
DX: D64.9 Anemia, unspecified (principal); E78.5 Hyperlipidemia, unspecified; I50.9 Heart failure, unspecified; Z79.899 Other long term (current) drug therapy
CPT/HCPCS: 36415; 80048; 84460; 85025

== ENCOUNTER → 2019-07-10 | Outpatient (CLI) | payer MEDICARE, OTHER | LOC: OD 09:47 | PROVIDERS: ATTEND Family Medicine Geriatric Medicine | DX: R73.9 Hyperglycemia, unspecified (principal) | CPT/HCPCS: 36415; 82947; 82950; 83036 ==